=== PATIENT | female | born 1945 | race Caucasian/White ===

== ENCOUNTER → 2016-07-31 | Outpatient (CLI) | payer BC, MEDICARE ==
[~2016-07-31] MED LIST: ALDACTONE25 MG PO; AMBIEN5 MG PO; ARTHRITIS PAIN650 M1 PO; ASCORBIC ACID500 MG PO; ASPIRIN EC81 MG PO; B COMPLEX1 EACH PO; BACTRIM DS1 TAB PO; CALCIUM500 MG PO; CINNAMON500 MG PO; COMPAZINE10 MG PO; DULCOLAX10 MG R; ENULOSE UD L30 ML/EA PO; FISH OIL 1,0001 EACH PO; GARLIC1000 MG PO; GLUCOPHAGE500 MG PO; GLYXAMBI 10 MG1 EACH PO; GRANIX SUB-Q; HUMALOG100 UNIT/3 SUB-Q; K-PHOS NEUTRAL)1 TAB PO; LACTULOSE10 GM/15 M PO; LANTUS SOL100 UNIT/1 SUB-Q; LIPITOR20 M1 PO; LOPRESSOR50 MG PO; MAG-OX-400(241400 MG PO; MELATONIN3 MG PO; MILK OF MA400 MG/5 M PO; MIRALAX17 GM PO; MOBIC7.5 MG PO; OCUVITE SOFTGE1 EACH PO; PERCOCET 5-3251 EACH PO; PROTONIX40 MG PO; PYRIDIUM100 MG PO; TYLENOL ARTHRI650 MG PO; VITAMIN B-121000 MCG PO; VITAMIN D-40400 UNIT PO; VITAMIN D1000 UNIT PO
== END | disposition disaster alternative care site (69) ==
LOC: GOPD 07-27 → GRAD 06:50 → GOPD 07:00
DX: C80.1 Malignant (primary) neoplasm, unspecified (principal); R93.2 Abnormal findings on diagnostic imaging of liver and biliary tract
CPT/HCPCS: J2001; J7060; Q9967

== ENCOUNTER 2016-08-03 23:56 | Inpatient (IN) | payer MEDICARE, BC ==
[~2016-08-03] VITALS: Ht 154.9 cm; Wt 84.6 kg
--- NOTE | ~2016-08-03 | ECHO ---
Transthoracic Echocardiography Report (TTE) Demographics Patient Name MICHAEL LIVINGSTON Date of Study 08/16/2016 Patient Number [id number] Visit Number [id number] Date of 1945 Room Number G6221 Gender Female Number Age 70 year(s) Referring Beau Singleton MD Customer Relations Specialist Sammy Hayes Physician Stevie Delgadillo MD Physician Interpreting Ned Davis Pigment Mixer Physician Uma SÁNCHEZ Supervising Ordering Beau Singleton MD, MD/MLP Physician Nurse Stress Airline Ticket Agent Conclusions Contractility Score Summary Normal Left Ventricular contractility was noted. Summary The estimated left ventricular ejection fraction is 55-60%. Mild concentric left ventricular hypertrophy. Diastolic assessment reveals Grade I diastolic dysfunction. Epicardial fat pad noted. The aortic root and proximal ascending aorta are not well visualized. Suboptimal subcostal window to evaluate the IVC and interatrial septum. Procedure Type of Study TTE procedure:2D Echocardiogram, M-Mode, Doppler , Color Doppler. Procedure Date Date: 08/16/2016 Start: 07:09 AM Study Location: Inpatient Portable Technical Quality: Adequate visualization Indications:Pre-chemotherapy. Appropriate Use Criteria: 9 Patient Status: Routine HR: 90 bpm BP: 125/58 mmHg M-Mode/2D Measurements LV Diastolic Dimension: 3.39 cm LV Systolic Dimension: 2.38 cm LV Septum Diastolic: 1.12 cm LV PW Diastolic: 1.05 cm Cardiac Output: 5 l/min LA Dimension: 2.8 cm EF Estimated: 55 % LVOT: 1.9 cm LVOT VTI: 19.6 cm RV Base: 2.25 cm LV Stroke volume: 55.54 ml RV Length: 5.34 cm TAPSE: 1.77 cm TDI-S': 16 cm/s Doppler Measurements AV Peak Velocity: 1.18 m/s MV Peak E-Wave: 0.54 m/s AV Peak Gradient: 5.57 mmHg MV Peak A-Wave: 0.94 m/s AV Mean Gradient: 3 mmHg MV E/A Ratio: 0.57 LVOT Peak Velocity: 1.03 m/s MV P1/2t: 69 msec TR Gradient:3.95 mmHg PV Peak Velocity: 0.95 m/s Estimated RAP:9 mmHg PV Peak Gradient: 3.61 mmHg Estimated RVSP: 13 mmHg Estimated PASP: 12.95 mmHg E' Septal Velocity: 0.06 m/s A' Septal Velocity: 0.08 m/s E' Lateral Velocity: 0.09 m/s A' Lateral Velocity: 0.12 m/s Findings Left Ventricle The left ventricle is normal in size. Mild concentric left ventricular hypertrophy. Diastolic assessment reveals Grade I diastolic dysfunction. Right Ventricle Normal right ventricle structure and function. Left Atrium Normal left atrial size. Right Atrium Normal right atrial size. IVC measures 1.13 cm with inspiratory collapse. IVC imaging is consistent with normal RA pressures. Mitral Valve Trivial mitral regurgitation by color Doppler. Aortic Valve The aortic valve is mildly sclerotic. Tricuspid Valve Trivial tricuspid regurgitation by color Doppler. Pulmonic Valve The pulmonic valve is not well visualized. Pericardial Effusion Epicardial fat pad noted. Miscellaneous The aortic root and proximal ascending aorta are not well visualized. Suboptimal subcostal window to evaluate the IVC and interatrial septum. Pleural Effusion No evidence of pleural effusion. Contractility Score LV regional wall motion:(0-Non visualized 1-Normal 2-Hypokinesis 3-Akinesis 4-Dyskinesis 5-Aneurysm) Signature dtt: Vinnie Marino dtd: 08/16/16 0709 Physician Self Edit
--- NOTE | ~2016-08-03 | OR ---
PATIENT'S NAME: MICHAEL LIVINGSTON [facility] AGE: 70 Y [address] ROOM: [place] [address] LOCATION: [facility] ADMIT DATE: 08/04/2016 OR/Procedure Report DISCHARGE DATE: FAMILY PHYSICIAN: EVONNE SILVA MD ATTENDING PHYSICIAN: VINITA DOWNEY SURGEON: Calista Saavedra MD DYNAMICS AX SOLUTION ARCHITECT: DATE OF PROCEDURE: 08/13/2016 ANESTHESIOLOGIST: Issa Chavez MD. ANESTHESIA: General. COMPLICATIONS: None. ESTIMATED BLOOD LOSS: Minimal. PREOPERATIVE DIAGNOSIS: Communicating hydrocephalus. POSTOPERATIVE DIAGNOSIS: Communicating hydrocephalus. PROCEDURES: 1. Stealth Navigation System for placement of ventricular catheter. 2. Insertion of a right occipital ventriculoperitoneal shunt(valve used is Strata II valve, opening pressure set at 2). CLINICAL HISTORY: The patient is a 70-year-old female patient who was admitted under the hospitalist on August 04, 2016, for investigations and management of new onset jaundice, unsteady gait, cognitive decline, and urinary incontinence. The patient had repeat noncontrast CT head that was compared to previous imaging and that showed progressive ventriculomegaly. I saw the patient in consultation. High-volume tap was performed on August 08, 2016, and the patient did reasonably well with physiotherapy and occupational therapy after that. Her gait and strength significantly improved after the tap. 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 The final pathology is pending. I discussed the situation with the patient, the primary physician, and the patient's family. Given the significant improvement of her gait after the high-volume tap, I recommended the above-mentioned surgery to try to improve her daily functioning and prevent further falls. I discussed the procedure itself, benefits, and all the risks associated with it. I also discussed hospital stay and recovery. The patient was interested in proceeding with surgery, so she was brought in for the operation. DESCRIPTION OF PROCEDURE: The patient was seen in the preoperative care unit PATIENT'S NAME: MICHAEL LIVINGSTON [facility] AGE: 70 Y [address] ROOM: [place] [address] LOCATION: [facility] ADMIT DATE: 08/04/2016 OR/Procedure Report DISCHARGE DATE: FAMILY PHYSICIAN: EVONNE SILVA MD ATTENDING PHYSICIAN: VINITA DOWNEY and the correct side was marked. Then, she was transferred to the main operating theater, was given general anesthetic, and underwent endotracheal intubation without complications. Preoperative antibiotics were given. Calf compressors were used throughout the procedure. She was then positioned supine on the table and all her joints and bony prominences were securely padded. The patient's head was placed on a foam and turned to the left side to expose the right occipital and suboccipital regions. Then, the patient was registered to the Synapt[employer] Navigation System with good accuracy. I navigated the site of the bur hole and the hair overlying it was clipped off. Then, an incision was marked around the bur holes. I also marked the right para umbilical incision. Surgical sites were then prepped and draped as per usual. I started by exposing the abdomen. The incision was sharply opened down to the subcutaneous tissue. Then, using a monopolar cautery, the anterior rectus sheath was identified and incised. Rectus muscle was splayed and the posterior rectus sheath was identified. The posterior rectus sheath was incised to expose the intraperitoneal cavity and I was satisfied with that. Then, I proceeded to open the head. The incision was sharply opened down to the periosteum. Then, a subgaleal pouch was created. Then, the distal catheter was tunneled from the head to the abdomen without complications. The distal catheter was connected to the Strata II valve and that was tied off using 2-0 silk. Then, a high-speed Midas Jose Luis drill was brought in and one bur hole was fashioned down to the dura. The dura was coagulated and incised. The cortex was also coagulated and incised. Then, under guidance of the Synapticon Navigation System, ventricular catheter was inserted to a depth of 5 cm from the inner table and CSF escaped under moderate pressure. The catheter was then freely inserted to a depth of 10 cm and CSF continued to drip. That catheter was connected to the valve and tied off using 2-0 silk. The valve was positioned in the pouch without complications. The CSF continued to drip spontaneously from the distal catheter. Then, the distal catheter was inserted into the abdomen without any resistance. The opening into the posterior rectus sheath was sutured using 2-0 Vicryl. I was satisfied with the procedure. I proceeded to closure. The wounds were copiously irrigated with bacitracin-containing irrigation. The abdominal incision was closed in layers with 2-0 Vicryl to the anterior rectus sheath, 2-0 Vicryl to the subcutaneous tissue, and luis enrique to the skin. Sterile dressing was applied. The head incision was also closed in layers. Just to mention, the valve was anchored to the periosteum using 4-0 Nurolon. The skin was closed in layers. The galea was closed with 2-0 Vicryl, and skin was closed with 3-0 Prolene in a running fashion. Sterile dressing was applied. At the end of the operation, the instrument and sponge counts were correct. PATIENT'S NAME: MICHAEL LIVINGSTON [facility] AGE: 70 Y [address] ROOM: [place] [address] LOCATION: [facility] ADMIT DATE: 08/04/2016 OR/Procedure Report DISCHARGE DATE: FAMILY PHYSICIAN: EVONNE SILVA MD ATTENDING PHYSICIAN: VINITA DOWNEY The patient tolerated the operation without any complications. MD JASBIR ESCALANTE/modl /[id number] CC: MD Britney Puckett MD d: 08/14/16 0020 t: 08/14/16 1533, OPERATIVE SUMMARY
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
--- NOTE | ~2016-08-03 | CON ---
PATIENT'S NAME: MICHAEL LIVINGSTON [facility] AGE: 70 Y [address] ROOM: [place] [address] LOCATION: [facility] ADMIT DATE: 08/04/2016 Consultation DISCHARGE DATE: FAMILY PHYSICIAN: EVONNE SILVA MD ATTENDING PHYSICIAN: VINITA DOWNEY REFERRING PHYSICIAN: NAZIA ADAMES MD Consult for Dr. Avila. This pleasant 70-year-old lady is referred for rehab/Group evaluation. She is status post on 08/13 insertion of right occipital ventricular peritoneal shunt using Strata #2 valve with opening pressure set at 2, done on 08/13/2016, details on record for communicating, hydrocephalus with frequent falls as per history for few days' duration. First started to fall on last . MEDICAL HISTORY: 1. Jaundice with liver metastases and increased liver enzymes with diffuse hepatic metastases as per history. 2. 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 3. She is also hypertensive. 4. Diabetes. 5. Coronary artery disease. 6. Status post left knee surgery. 7. Total abdominal hysterectomy. 8. Status post right shoulder scope per history. At the present time, she is alert, not well oriented. Vitals are as follows. Blood pressure 136/62, temperature 99, pulse 86, respiration rate 12. She is 5 feet 1 inch tall and weighs 87.4 kg. She is giving history of smoking about 19 years ago when she has stopped and no alcohol abuse. She was jaundiced and followed closely by coin machine operator and chemical processing supervisor, scheduled for a possible liver biopsy. She can move all four. She can swallow without much difficulty. She is weak throughout at best with 3+ to 4-, unable to perform and cannot tolerate activity much and remains at risk of falling. She is continent of her bowel and bladder, she tells me. She is on the following medications. PATIENT'S NAME: MICHAEL LIVINGSTON [facility] AGE: 70 Y [address] ROOM: [place] [address] LOCATION: [facility] ADMIT DATE: 08/04/2016 Consultation DISCHARGE DATE: FAMILY PHYSICIAN: EVONNE SILVA MD ATTENDING PHYSICIAN: VINITA DOWNEY 1. Insulin detemir. 2. Insulin aspart. 3. Reglan. 4. Zofran. 5. Dilaudid. 6. Apresoline. 7. Labetalol. 8. Lasix. 9. Aldactone. 10. MiraLAX. 11. Percocet. 12. Insulin Humalog mild scale. 13. Melatonin. 14. B12 vitamin. 15. Vitamin D. 16. Os-Khurram D. 17. Lopressor. 18. Glucagon. 19. Glucose. 20. Dextrose. 21. NaCl 0.9%. 22. Ancef. 23. Demerol. 24. Toradol. 25. Fentanyl. 26. Vitamin C. 27. Cefazolin. At the present time, I will continue her on PT, OT, already initiated. I will add speech therapy to her therapy schedule and I feel that this lady will benefit from intensive rehabilitation of about 2 weeks or so, aiming to discharge home with modified independence. Did discuss all the plan of care with her in detail. She verbalized understanding and agreement. Thank you for this referral. ANGELA HERBERT MD [facility]/modl /[id number] d: 08/14/16 1426 t: 08/15/16 1541, CONSULTATION REPORT
--- NOTE | ~2016-08-03 | DS ---
PATIENT'S NAME: MICHAEL LIVINGSTON [facility] AGE: 70 Y [address] ROOM: [place] [address] LOCATION: [facility] ADMIT DATE: 08/04/2016 Discharge Summary DISCHARGE DATE: 09/05/2016 FAMILY PHYSICIAN: Elie Peña MD ATTENDING PHYSICIAN: Edvin Hubbard 1. Diffuse large B-cell lymphoma. 2. Normal pressure hydrocephalus status post CORPORATE MEETING PLANNER shunt. 3. Elevated liver function test. 4. Diabetes mellitus type 2 with hyperglycemia. 5. Essential hypertension. 6. Obesity with a BMI of 34.2. HOSPITAL COURSE: Please reference the admitting data to the history and physical as dictated by Dr. Edvin Hubbard. Briefly, this 70-year-old female, who was suffering from frequent falls, jaundice, and elevated liver functions, was asked to be admitted for further evaluation and management. She was admitted under the hospitalist care and taken for CT of the head noncontrast, which showed chronic ventriculomegalia, which showed mildly worsened change. MRI further confirmed this. She also had an MRI of her lumbar spine at that time because of the frequent falls and lower extremity leg weakness, which just showed lumbar degenerative changes without any significant canal stenosis. It was also noted on exam that she had diffuse nodular disease throughout her liver, which was already known prior to hospitalization. Neurosurgery consultation was obtained for the ventriculomegalia. She was given occupational and physical therapy for optimization and a high-volume lumbar puncture tap was scheduled and done on August 08. This was done under IR and 48 mL of CSF was removed. A followup CT stealth protocol for operative planning was obtained on August 09 showing stable ventriculomegalia. She was given risks, benefits, and alternatives of a ventricular peritoneal shunt placement. She was given preoperative Ancef [employer] and taken to surgery on August 13, 2016, performed by Dr. Saavedra. Postoperatively, she was put on intensive restorative plan. We did ask physiatry to see the patient, but at the present time, he did not feel she was quite ready to do and be transitioned into intensive therapy. Because of cofounding factors of newly diagnosed lymphoma and requirements of chemo, she was not a skilled candidate. She was held and continued on therapies within the acute setting and make progress while treating her cancer and was felt to continue improvement independently from a functional status standpoint until day of discharge. As mentioned above, the patient did have elevated liver function and jaundice. Her initial counts upon arrival showed an AST of 452, an ALT of 557, an alkaline phosphatase of 960, and total bilirubin of 9.3. This did increase to PATIENT'S NAME: MICHAEL LIVINGSTON [facility] AGE: 70 Y [address] ROOM: [place] [address] LOCATION: [facility] ADMIT DATE: 08/04/2016 Discharge Summary DISCHARGE DATE: 09/05/2016 FAMILY PHYSICIAN: Elie Peña MD ATTENDING PHYSICIAN: Edvin Hubbard a total bilirubin of 21 over the next few days. A GI consultation was obtained. She had already begun a workup as an outpatient for this and had plan for a biopsy. A biopsy was performed on 08/06/2016, which underwent without any complication. This was sent to lab and pathology showing that the liver tissue biopsy was diffuse large B-cell lymphoma with a germinal center B- cell phenotype. Oncology then was asked for consultation in which once the results were confirmed, she was given treatment options. In the meantime, she was placed on lactulose and rifaximin given her condition. Her LDH and labs were followed serially. Treatment plan was within curative intent. A PICC line was placed for necessity of chemotherapy administration. A bone marrow biopsy was also obtained. 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 She tolerated chemotherapy well. Decadron associated hyperglycemia was tough to maintain, so levels were titrated accordingly. Her liver functions showed improvement with her bilirubin decreasing for more than half of what it was. It was agreed upon that she was a candidate for R-CHOP therapy in which she underwent on 08/30/2016. She tolerated this well. Of note, she was on routine antiemetics, pain control, Decadron with taper, and prophylactic antibiotics during her treatment regimen. By the day of discharge, her liver functions had improved to an AST of 36, an ALT of 86, and a total bilirubin of 1.9. Her further chronic conditions were managed and maintained with home medicines and titration. Her electrolytes required optimization throughout her stay. Physical, occupational, and speech therapy worked with her gait functionality, her daily activity, and cognitive quaker. DVT prophylaxis maintained with pneumatic compression devices and Lovenox when able during her stay. She made progress over the last month and expects a good prognosis. CONDITION UPON DISCHARGE: Good. PERTINENT LABORATORY DATA AND RADIOLOGIC IMAGING: As above. CONSULTING PROVIDERS: 1. Dr. Saavedra of Neurosurgery. 2. Dr. Renteria of Gastroenterology. 3. Dr. Ruiz of physiatry. 4. Dr. Maldonado Yanez of Oncology. PROCEDURES: 1. CORPORATE MEETING PLANNER shunt placement by Dr. Saavedra on 08/14/2016. 2. Bone marrow biopsy by Dr. Reji Shen. LABORATORY RESULTS: Most recently on 08/31; her CBC showed a white blood cell normalized at 7.8 down from over 60,000, hemoglobin of 9.1, hematocrit of PATIENT'S NAME: MICHAEL LIVINGSTON [facility] AGE: 70 Y [address] ROOM: [place] [address] LOCATION: [facility] ADMIT DATE: 08/04/2016 Discharge Summary DISCHARGE DATE: 09/05/2016 FAMILY PHYSICIAN: Elie Peña MD ATTENDING PHYSICIAN: Edvin Hubbard 27.7, and a platelet count of 312. Her most recent chemistry panel showed a glucose of 153, a BUN of 22, creatinine 0.6, sodium 138, potassium 4.1, chloride of 106, CO2 of 25, calcium of 7.7. Liver functions as mentioned most recently normalizing AST of 36, ALT of 86, alkaline phosphatase of 295, total bilirubin of 1.9, and a direct bilirubin of 1.7, phosphorus of 2.7, LDH of 188, and a GFR of greater than 60. Her initial lipid panel showed a total cholesterol of 435, triglyceride of 195, HDL less than 10, and LDL 386. PATH REPORTS: 1. Bone marrow biopsy showed suspicious for low-frequency B-cell lymphoproliferative disorder. 2. Cerebral spinal fluid was negative for malignant cells. 3. Liver tissue with diffuse large B-cell lymphoma with germinal center B- cell phenotype. RADIOLOGIC IMAGING: Most recent noncontrast head CT for followup shunt placement showed no evidence of complication and stable ventriculomegalia on 08/15. DISCHARGE MEDICINES: 1. Vitamin B12 1000 mcg p.o. every day. 2. NovoLog FlexPen sliding scale with each meal three times daily; for blood sugar of 150-200, takes 0 units; for blood sugar of 201-250, takes 2 units; for blood sugar of 251-300, takes 4 units. 3. Levemir FlexPen 30 units subcutaneous every night at bedtime. 4. Enulose 15 mL p.o. twice daily to hold if having greater than three bowel movements per day. 5. Lopressor 50 mg p.o. every 12 hours. 6. [place]-3 fatty acid 1000 mg p.o. twice daily. 7. MiraLax 17 g p.o. twice daily as needed for constipation. 8. Potassium phosphate neutral one tablet p.o. twice daily. 9. Os-Khurram plus D 500 mg p.o. every day. 10. Compazine 10 mg p.o. every 6 hours as needed. 11. Aldactone 12.5 mg p.o. every day. 12. Bactrim DS one tablet p.o. every Saturday and at 0900 and 2100. 13. Granix 480 mcg subcutaneous every day, stop date 09/08 at 2359. She will need to get this at Dr. Pena's office or at [facility]. 14. Percocet 5/325 mg 1-2 tablets p.o. every 4 hours needed. 15. Aspirin 81 mg p.o. every day. 16. Glucophage 500 mg p.o. twice daily. 17. Vitamin C, vitamin E, and lutein one capsule p.o. every day. 18. Melatonin 3-6 mg p.o. every night at bedtime as needed. 19. Pyridium 100 mg p.o. every day. 20. Ascorbic acid 500 mg p.o. every day. PATIENT'S NAME: MICHAEL LIVINGSTON [facility] AGE: 70 Y [address] ROOM: [place] [address] LOCATION: [facility] ADMIT DATE: 08/04/2016 Discharge Summary DISCHARGE DATE: 09/05/2016 FAMILY PHYSICIAN: Elie Peña MD ATTENDING PHYSICIAN: Edvin Hubbard 21. Prescriptions were written for blood glucose monitoring strips for True Metrix four times daily to record in her log book. 22. BD pen needles for four times a day injections at 3/16-inch 32-gauge needles. DISCHARGE INSTRUCTIONS: The patient will be discharged to home with home health care to include senior living, physical therapy, occupational therapy, and speech therapy for cognitive rehabilitation. A [id number] form was completed and discussed with the patient. Her diet should be without restriction. Her activity should be of fall precautions. She will need followups with each specialist as follows. PCP; Dr. Pena, September 12 at 1:30 with Rebeka De Paz. She should take her blood sugar regimen and have a CBC and a CMS at the followup. Dr. Valle on September 20 at 0900 with plans to continue chemotherapy treatments. As ordered above, her Granix treatments should continue as well as Bactrim. She will require to have her Granix done in her local PCP office or hospital. This was discussed in length with the patient. Dr. Saavedra for followup with CORPORATE MEETING PLANNER shunt in the next 2-4 weeks. An appointment has been made SaturdaySeptember 25 at 10 a.m. The patient will also go home with PICC line. Eventually, she will require a permanent line placement that should be discussed at greater length as an outpatient. The patient's dressing was changed on the day of discharge and she was given PICC line care and education. Home health care should continue to observe the patient and help her care for her PICC line when she is at home. The above line of information was discussed with the patient. The patient stated complete understanding and all questions were answered satisfactorily. Total time arranging discharge with collaboration with specialists and providers as well as arranging home health care was greater than 30 minutes. KAT THOMPSON APRN, APRN FOR MD EMERALD NUNN/teresa PATIENT'S NAME: MICHAEL LIVINGSTON [facility] AGE: 70 Y [address] ROOM: [address] [address] LOCATION: [facility] ADMIT DATE: 08/04/2016 Discharge Summary DISCHARGE DATE: 09/05/2016 FAMILY PHYSICIAN: Elie Peña MD ATTENDING PHYSICIAN: Edvin Hubbard /[id number] CC: MD Katrina Lenz MD Ahmad Bader, MD d: t: 09/06/16 0945, DISCHARGE SUMMARY
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
--- NOTE | ~2016-08-03 | HP ---
PATIENT'S NAME: MICHAEL LIVINGSTON [facility] AGE: 70 Y [address] ROOM: [id number] [place], [place] [address] LOCATION: [facility]PCU ADMIT DATE: 08/04/2016 History & Physical DISCHARGE DATE: FAMILY PHYSICIAN: Maribel Pena MD ATTENDING PHYSICIAN: VINITA DOWNEY DATE OF SERVICE: CHIEF COMPLAINT: Frequent falls. HISTORY OF PRESENT ILLNESS: This is a 70-year-old female who has been recently been diagnosed with some liver mets last week and is transferred from [place] because of increased frequent falls in the last 2 days. History as obtained from the patient, she reports that last couple of days, she noticed that she has been falling more frequently, she observed that when she walks suddenly, her legs will give way under her, this happened first on , and then happened again yesterday, and by evening times, the son decided to take the patient into the ER for evaluation. On arrival in the ER, they did some blood work and observed the patient was jaundiced and her blood work showed she had some elevated liver enzymes, which was first diagnosed last week Saturday, when the patient came in for checkup with her PCP Dr. Peña who did some blood work and found that the patient had some elevated enzymes and subsequently had an ultrasound done followed by a CAT scan of the chest and abdomen, here at [facility], the ultrasound is reported as diffuse hepatic metastatic disease, probably benign hypoechoic structure in the spleen either reflecting the hemangioma or possible cyst, and this was followed by CT of the chest and abdomen, which is reported as liver capsular irregularity raises the possibility of cirrhosis, the diffuse small liver lesion seen on ultrasound are less clearly defined on the CT study today; although, there is mild diffuse parenchymal immunogenicity. So, following this, Dr. Peña had scheduled the patient for a liver biopsy as outpatient scheduled for August 06, 2016 at 2:30 here at [facility]. However, the PA at [place] still felt the patient needed to be transferred over. The patient reports that she has actually been falling for the past year on and off and usually she walks with a cane and it has progressed from walking with a cane to walking with a walker. She reports that last week Saturday when she came in to visit her PCP that she fell in the parking lot. She denies any dizziness or lightheadedness prior to the fall. She denies any headache. She just observes that she just finds that her legs just gives way and she falls to the ground. Denies chest pain, denies abdominal pain, however, she also notes urine incontinence, denies fecal incontinence, so she usually wear pads. Denies fever. Denies urinary symptoms. PATIENT'S NAME: MICHAEL LIVINGSTON [facility] AGE: 70 Y [address] ROOM: [id number] [place] [id number] LOCATION: GPCU ADMIT DATE: 08/04/2016 History & Physical DISCHARGE DATE: FAMILY PHYSICIAN: Maribel Pena MD ATTENDING PHYSICIAN: VINITA DOWNEY REVIEW OF SYSTEMS: The 13-elements of review of systems were asked and as documented in the HPI. She also denies back pain. PAST MEDICAL HISTORY: Includes diabetes, recently diagnosed with probably cirrhosis versus metastatic disease, vitamin D deficiency, vitamin B12 deficiency, also coronary artery disease, she says she has got some blockage in her heart. PAST SURGICAL HISTORY: Includes left knee surgery, total abdominal hysterectomy, and right shoulder cleaning out. SOCIAL HISTORY: Lives on her own. Stopped smoking 19 years ago. Smoked for about 6-7 years 1 pack per day. Denies use of alcohol. FAMILY HISTORY: Both parents have . Mother at the age of 76 from breast cancer. Father passed also away in his 70s and was a chronic alcoholic. PHYSICAL EXAMINATION: VITAL SIGNS: Temperature 98.2, pulse 90, respiratory rate 16, blood pressure 136/77, and oxygen saturation 94%. GENERAL: Reveals a pleasant female who is alert, awake, and oriented x3, not in any form of respiratory distress or painful distress. NEUROLOGIC: Cranial nerves 2 through 12 are intact bilaterally. Sensory is reduced on the right lower extremity. Power in both upper extremities is at least 4 and in both lower extremity is at least a 3. HEENT: Normocephalic, atraumatic. Pupils equal and reactive to light bilaterally. Pharynx is normal. Mucosa is moist. NECK: Supple. No area of tenderness. No lymphadenopathy. EARS: No obvious ear discharge or drainage. CARDIOVASCULAR: Normal S1, S2. Regular rate and rhythm. CHEST: Clear to auscultation bilaterally. ABDOMEN: Soft, nondistended. No area of tenderness. No palpable organomegaly. Positive bowel sounds. EXTREMITIES: There is no joint swelling, erythema, or tenderness. SKIN: Skin in the upper body appears icteric. LABORATORY DATA: Labs done at the outside facility: Sodium 133, potassium 4.2, chloride 97, CO2 26, anion gap 9.1, BUN 15, creatinine 1.0, total bili 10.6, alk phos 964, AST 457, ALT 599, total protein 6.2, albumin 2.3, amylase 30, and lipase 123. PATIENT'S NAME: MICHAEL LIVINGSTON [facility] AGE: 70 Y [address] ROOM: [place] [address] LOCATION: GPCU ADMIT DATE: 08/04/2016 History & Physical DISCHARGE DATE: FAMILY PHYSICIAN: Maribel Pena MD ATTENDING PHYSICIAN: VINITA DOWNEY WBC 9.1, H and H 13.3/40.7, and platelet is 265. INR 1.2. ASSESSMENT AND PLAN: This is a 70-year-old female with history of frequent falls. 1. Frequent falls. Differentials include it could be probably normal- pressure hydrocephalus. Given a history of incontinence of urine and frequent falls, we will get a CT head without contrast. I will also get a MRI of her lumbosacral with intravenous contrast. Other differential could be peripheral neuropathy from her diabetes, which appears to be probable to be uncontrolled. 2. Elevated transaminases, possibly from liver cirrhosis plus from autoimmune hepatitis. We will likely get a GI consult for further management. The patient has been scheduled to get a liver biopsy on Saturday. 3. Diabetes type 2 with hyperglycemia. We will continue the patient on her insulin. 4. Please note, all the above conditions are present on admission. The line of management was explained to the patient and her son who did not have any questions at this time. MD LINA NUNN/teresa /[id number] D: [id number] T: [id number] HISTORY & PHYSICAL
[~2016-08-03 23:56] MED LIST changes: -ALDACTONE25 MG PO; -AMBIEN5 MG PO; -ARTHRITIS PAIN650 M1 PO; -ASCORBIC ACID500 MG PO; -BACTRIM DS1 TAB PO; -COMPAZINE10 MG PO; -DULCOLAX10 MG R; -ENULOSE UD L30 ML/EA PO; -GRANIX SUB-Q; -K-PHOS NEUTRAL)1 TAB PO; -LACTULOSE10 GM/15 M PO; -MAG-OX-400(241400 MG PO; -MILK OF MA400 MG/5 M PO; -MIRALAX17 GM PO; -PERCOCET 5-3251 EACH PO; -PROTONIX40 MG PO; -PYRIDIUM100 MG PO; -VITAMIN B-121000 MCG PO; -VITAMIN D-40400 UNIT PO
[2016-08-04] MEDS ORDERED: VITAMIN B-121000 MCG PO (03:30)
[2016-08-04] MEDS ORDERED: PYRIDIUM100 MG PO (03:31)
[2016-08-04 04:36] LABS: BLOOD URINE 10 /UL (NEGATIVE); COLOR URINE AMBER (YELLOW); GLUCOSE URINE NEGATIVE (NEGATIVE); KETONE URINE NEGATIVE (NEGATIVE); LEUKOCYTES URINE 500 /UL (NEGATIVE); NITRITE URINE POSITIVE (NEGATIVE); PROTEIN URINE 30 mg/dL (NEGATIVE); TURBIDITY URINE 2+ (CLEAR); UROBILINOGEN URINE 12 mg/dL (NORMAL)
[2016-08-04 05:03] LABS: WBC URINE 20-50 #/HPF (NEGATIVE)
[2016-08-04 05:04] LABS: BACTERIA URINE MANY (NEGATIVE); CRYSTALS URINE CALCIUM OXALATE (NEGATIVE); RBC URINE 0-2 #/HPF (NEGATIVE)
[2016-08-04 05:10] LABS: BASOPHIL # 0.1 K/uL (0.0-0.2); BASOPHIL % 0.6 %; EOSINOPHIL # 0.3 K/uL (0.0-0.5); EOSINOPHIL % 3.6 %; HEMATOCRIT 40.6 % (33.0-46.0); HEMOGLOBIN 12.9 g/dL (10.0-15.0); IMMATURE GRANULOCYTE # 0.1 K/uL (0.0-0.3); IMMATURE GRANULOCYTE % 0.6 %; LYMPHOCYTE # 1.7 K/uL (0.8-4.0); LYMPHOCYTE % 19.8 %; MCHC 31.8 gm/dL (32.0-36.5); MCV 85.1 fl (83.0-98.0); MONOCYTE # 1.2 K/uL (0.0-1.0); MONOCYTE % 13.8 %; MPV 11.4 fl (9.4-12.4); NEUTROPHIL # (ANC) 5.4 K/uL (1.8-7.8); NEUTROPHIL % 61.6 %; NRBC % 0 /100WBC (0-0.00); PLATELET COUNT 264 K/uL (150-450); RBC 4.77 M/uL (3.50-5.50); RDW-CV 16.3 % (11.9-14.6); WBC 8.7 K/uL (4.0-11.0)
[2016-08-04 05:13] LABS: ALBUMIN 2.4 gm/dL (3.5-5.0); BLOOD UREA NITROGEN 15 mg/dL (6-24); CALCIUM 8.7 mg/dL (8.5-10.5); CHLORIDE 100 mMol/L (96-110); CO2 26 mMol/L (22-32); CREATININE 0.9 mg/dL (0.5-1.1); ESTIMATED GFR (MDRD EQUATION) > 60; SODIUM 135 mMol/L (135-145); TOTAL PROTEIN 6.2 g/dL (6.0-8.4)
[2016-08-04 05:17] LABS: ALK PHOS 960 IU/L (33-138)
[2016-08-04 05:18] LABS: ALT 557 IU/L (12-78); AST 452 IU/L (10-40); TOTAL BILIRUBIN 9.3 mg/dL (0.0-1.5)
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
[2016-08-04] MEDS ORDERED: ASCORBIC ACID500 MG PO (10:57)
--- NOTE | 2016-08-04 15:43 | NUR ---
Significant Event: A/O X3. UP WITH 1 ASSIST, GB AND WALKER. SLIGHTLY UNSTEADY. ORTHOSTATIC BPs DONE. IV TO LEFT AC WITH NS @ 75 ML/HR. DR. ADAMES CONSULTED, WILL DO LIVER BIOPSY Saturday, WILL BE NPO AFTER MIDNIGHT SATURDAY NIGHT. WILL HAVE MRI OF BRAIN TODAY. DENIES PAIN. CONTINUES TO BE VERY JAUNDICED. Follow up:
[2016-08-04 15:44] LABS: INR - (THERAPEUTIC) 1.1 (0.9-1.1); PROTIME 11.7 SECONDS (9.6-11.1)
[2016-08-04 15:58] LABS: ESTIMATED GFR (MDRD EQUATION) 55
[2016-08-05 04:10] LABS: BASOPHIL # 0.1 K/uL (0.0-0.2); BASOPHIL % 0.6 %; EOSINOPHIL # 0.4 K/uL (0.0-0.5); EOSINOPHIL % 4.8 %; HEMATOCRIT 39.1 % (33.0-46.0); HEMOGLOBIN 12.3 g/dL (10.0-15.0); IMMATURE GRANULOCYTE % 0.4 %; LYMPHOCYTE # 1.3 K/uL (0.8-4.0); LYMPHOCYTE % 15.9 %; MCHC 31.5 gm/dL (32.0-36.5); MCV 85.7 fl (83.0-98.0); MONOCYTE # 1.3 K/uL (0.0-1.0); MONOCYTE % 15.1 %; MPV 11.2 fl (9.4-12.4); NEUTROPHIL # (ANC) 5.2 K/uL (1.8-7.8); NEUTROPHIL % 63.2 %; NRBC % 0 /100WBC (0-0.00); PLATELET COUNT 258 K/uL (150-450); RBC 4.56 M/uL (3.50-5.50); RDW-CV 16.4 % (11.9-14.6); WBC 8.3 K/uL (4.0-11.0)
--- NOTE | 2016-08-05 04:12 | NUR ---
Significant Event: PATIENT IS A/O X3 BUT FORGETFUL AT TIMES. VSS. HR 70'S. SBP 150-160'S. AFEBRILE. 02 SATS IN MID 90'S ON RA. C/O LEFT KNEE PAIN. ICE APPLIED WITH SOME RELIEF. LUNGS CLEAR/DIM THROUGHOUT. UP WITH 1 ASSIST WITH WALKER/GB TO RESTROOM. CAN BE VERY UNSTEADY AT TIMES ESPECIALLY WITH TURNING. BOWELS ACTIVE. BM X1. VOIDS PER RESTROOM BUT INCONTINENT AT TIMES. CONTINUES TO HAVE JAUDICE SKIN THROUGHOUT INCLUDING EYES AND MOUTH. IV TO LEFT AC WITH NS AT 75ML/HR. DR NOEL SEEN PATIENT AND BELIEVES SHE HAS NORMAL PRESSURE HYDROCEPHALUS. SINCE PATIENT HAD ASPIRIN RECENTLY THE SPINAL TAP WAS SCHEDULE TO BE DONE ON THE . PHYSICIAN NEEDS TO CLARIFY WHO IS DOING IT. ON ACHS ACCUCHECKS. Follow up: CONTINUE TO MONITOR PER PLAN OF CARE.
[2016-08-05 04:30] LABS: ALBUMIN 2.1 gm/dL (3.5-5.0); BLOOD UREA NITROGEN 15 mg/dL (6-24); CALCIUM 8.6 mg/dL (8.5-10.5); CHLORIDE 100 mMol/L (96-110); CO2 24 mMol/L (22-32); CREATININE 0.8 mg/dL (0.5-1.1); ESTIMATED GFR (MDRD EQUATION) > 60; SODIUM 136 mMol/L (135-145); TOTAL PROTEIN 5.7 g/dL (6.0-8.4)
[2016-08-05 04:31] LABS: ALK PHOS 951 IU/L (33-138); ALT 557 IU/L (12-78); ANION GAP 15.9 (10.0-19.0); AST 533 IU/L (10-40); POTASSIUM 3.9 mMol/L (3.7-5.1); TOTAL BILIRUBIN 11.3 mg/dL (0.0-1.5)
--- NOTE | 2016-08-05 16:14 | NUR ---
Significant Event: A/O X3. FORGETFUL AT TIMES. UP WITH 1 ASSIST, GB AND WALKER, SLIGHTLY UNSTEADY, ESPECIALLY WITH TURNING. AMBULATED IN HALLS WITH PT. DENIES PAIN. LEFT FA IV SL'D, DRESSING CHANGED. BLOOD SUGAR 66 THIS AM, NO S/S NEEDED TODAY. ONLY 20 UNITS OF LEVEMIR ORDERED FOR TONIGHT. WILL BE NPO AT MIDNIGHT FOR LIVER BIOPSY IN AM. JAUNDICED SKIN AND EYES CONTINUES. FAMILY @ BEDSIDE T/O THE SHIFT. Follow up: LIVER BX IN AM. PLAN FOR SPINAL TAP IN NEXT 4-5 DAYS.
[2016-08-06 03:53] LABS: BASOPHIL # 0.1 K/uL (0.0-0.2); BASOPHIL % 0.7 %; EOSINOPHIL # 0.3 K/uL (0.0-0.5); EOSINOPHIL % 3.7 %; HEMATOCRIT 39.4 % (33.0-46.0); HEMOGLOBIN 12.5 g/dL (10.0-15.0); IMMATURE GRANULOCYTE # 0.1 K/uL (0.0-0.3); IMMATURE GRANULOCYTE % 0.6 %; LYMPHOCYTE # 1.5 K/uL (0.8-4.0); LYMPHOCYTE % 17.1 %; MCH 26.9 pg (27.0-34.0); MCHC 31.7 gm/dL (32.0-36.5); MCV 84.9 fl (83.0-98.0); MONOCYTE # 1.2 K/uL (0.0-1.0); MONOCYTE % 14.2 %; NEUTROPHIL # (ANC) 5.4 K/uL (1.8-7.8); NEUTROPHIL % 63.7 %; NRBC % 0 /100WBC (0-0.00); PLATELET COUNT 277 K/uL (150-450); RBC 4.64 M/uL (3.50-5.50); RDW-CV 16.4 % (11.9-14.6); WBC 8.5 K/uL (4.0-11.0)
[2016-08-06 04:13] LABS: INR - (THERAPEUTIC) 1.1 (0.9-1.1); PROTIME 11.8 SECONDS (9.6-11.1)
[2016-08-06 04:23] LABS: ALBUMIN 2.1 gm/dL (3.5-5.0); BLOOD UREA NITROGEN 19 mg/dL (6-24); CALCIUM 8.7 mg/dL (8.5-10.5); CHLORIDE 98 mMol/L (96-110); CO2 23 mMol/L (22-32); CREATININE 0.8 mg/dL (0.5-1.1); ESTIMATED GFR (MDRD EQUATION) > 60; SODIUM 133 mMol/L (135-145); TOTAL BILIRUBIN 13.3 mg/dL (0.0-1.5); TOTAL PROTEIN 5.9 g/dL (6.0-8.4)
[2016-08-06 04:27] LABS: ALT 533 IU/L (12-78); ANION GAP 15.7 (10.0-19.0); AST 531 IU/L (10-40); POTASSIUM 3.7 mMol/L (3.7-5.1)
[2016-08-06 04:46] LABS: ALK PHOS 1027 IU/L (33-138)
--- NOTE | 2016-08-06 04:47 | NUR ---
Significant Event: PATIENT IS A/O X3 BUT FORGETUL. VSS. HR 60-70'S. SBP 140-170'S. AFEBRILE. 02 SATS IN MID 90'S ON RA. NO C/O PAIN. LUNGS CLEAR/DIM TRHOUGHOUT. UP WITH 1A WITH WALKER/GB. UNSTEADY GAIT ESPECIALLY WITH TURNS. BOWELS ACTIVE. BM X2. VOIDS PER RESTROOM. INCONTINENT VOIDS AT TIMES. BREIF ON. CONTINUES TO HAVE JAUDICE EVEN TO EYES AND MOUTH. IV TO LEFT AC SL. ON ACHS ACCUCHECKS. NPO SINCE MIDNIGHT. Follow up: LIVER BIOPSY IN AM. CONTINUE TO MONITOR PER PLAN OF CARE.
[2016-08-07 04:55] LABS: TOTAL BILIRUBIN 14.3 mg/dL (0.0-1.5); TOTAL PROTEIN 5.6 g/dL (6.0-8.4)
--- NOTE | 2016-08-07 05:16 | NUR ---
Significant Event: PATIENT HAS BEEN A/0 X 3, SLOW TO RESPOND AT TIMES. SBP'S REMAINED IN THE 160'S, HR IN THE 80-90'S. 02 UPPER 90'S ON RA. SHE HAS RESTED WELL THIS EVENING WITH NO COMPLAINTS. AMBULTES 1 ASSIST WITH GAIT BELT WALKER. LIZETTE CALLED TO SHASHI MACK ORDERS, 30 UNITS GIVEN AT HS. SKIN REMAINS JAUNDICED. DID NOT NOTICE ANY DIZZYNESS THIS EVENING, DENIED ALL PAIN, NO PAIN MEDS GIVEN. Follow up:
--- NOTE | 2016-08-07 14:36 | NUR ---
Introduced myself and role of care management to pt's son while she was sleeping. He lives in [place] and so does she. He states she is in senior housing and is fairly independent. Just recenlty her gait has changed and falls. He does check on her quite a bit and is hoping with the spinal tap and everything being done she will be able to go home. I did mention hhc if needed and he will just have to see. WIll continue to follow.
--- NOTE | 2016-08-07 15:53 | NUR ---
Significant Event: Patient A&O x3. Can be forgetful at times. Slow to respond to questions at times. Patient continues to be very jaundiced. Morning BS 74. 1 unit of novolog given after breakfast for carb count. Afternoon BS at 129. 1 unit given for carb count. Night time levemir dose reduced to 26 units. Patient complains of pain at liver biopsy site. Percocet given x1 at 1515. Bandage of site change to bandaid. Patient was incontinent of urine x2 large voids. BM today. Spinal tap tomorrow. Patient has been calm and cooperative with cares. Follow up: Continue plan of care.
[2016-08-07 16:14] LABS: ALPHA-1-ANTITRYPSIN 280 mg/dL (100-200); CERULOPLASMIN 44 mg/dL (7-220)
--- NOTE | 2016-08-08 07:20 | NUR ---
Significant Event: A/0 X 3, VSS ON RA. PATIENT IS TO HAVE A LUMBAR PUNCTURE TODAY WITH DR. NOEL. PT TO ASSESS GAIT BEFORE AND AFTER. Follow up:
--- NOTE | 2016-08-08 14:28 | NUR ---
Significant Event: A&O x3 but can be forgetful at times. VERY HIGH FALL RISK. MULTIPLE PREVIOUS FALLS. Slow to respond to questions at times. Skin and eyes continue to be jaundiced. Low BS this am of 62 treated effectively with 240ml of orange juice. Patient C/O pain in the right upper quadrant of abdomen at the liver biopsy site. Mostly manageable but did give percocet x1. Also complains of R)shoulder pain. Continues to be incontinent of urine. BM x1. Patient down for a lumbar puncture this am at 0915 and returned to the floor at 1030. 48ml of fluid taken off. Patient tolerated procedure as expected. Family has been in room all day. Patient remains calm and cooperative with cares. ACHS accu checks. Follow up: Continue plan of care. Monitor weakness.
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
--- NOTE | 2016-08-09 12:32 | NUR ---
A - PT SCREENED D/T LOS. FORGETFUL @ TIMES. SLOW TO RESPOND @ TIMES. S/P LIVER BX. LIVER METS? S/P LUMBAR PUNCTURE. FREQUENT FALLS NEIGHBORHOOD COORDINATOR. ABD PAIN. HT: 61" WT: 184# BMI: 34.7 LABS: ACCUCHECK 62-REAS, NA 133, ALB 2.0, TOT BILI 14.3, ALK PHOS 1036, AST 536, ALT 537 MEDS: LEVEMIR, CARB COUNT INSULIN, SSI DIET: REG. INTAKE: 25-100% NEEDS: 9311-2467 KCAL (15-20 KCAL/KG), 84-101 G PRO (1-1.2 G/KG), 2100 ML FLUID (25 ML/KG) D - INADEQUATE NUTRIENT INTAKE AT TIMES R/T DECREASED APPETITE, ALTERED GI FUNCTION AEB INTAKE RECORD, ABD PAIN. I - GOAL FOR INTAKE 50-75% FOR DURATION OF STAY. WILL ADD ENSURE @ B M/E - WILL MONITOR INTAKE. F/U IN 4-5 DAYS.
--- NOTE | 2016-08-09 12:35 | NUR ---
Talked with patient and son at bedside. Denies questions or concerns for care management today, still hopeful to go home on discharge, said will need therapy, discussed potentially doing outpt therapy vs having home health and doing therapy in her home 1-2x week. They would be open to that. I did put HH face to face sheet on chart. Will follow.
--- NOTE | 2016-08-09 17:27 | NUR ---
Significant Event: Patient A/O x 3 but forgetful. Up with 1-2 A. Weak and tired frequently. VSS throughout the day on RA. Started having nausea early this afternoon. Gave IV zofran x 1. Have not given anything for pain this shift. L)AC PIV SL. Follow up: Continue as per plan of care. Continue to monitor weakness. Patient to discuss possible shunt placement with Dr. Saavedra today.
--- NOTE | 2016-08-10 05:00 | NUR ---
Significant Event: VSS ON RA, AFEBRILE. SBP 130-160'S, HR 80'S. BIGGEST ISSUE THIS EVENING WAS THE PATIENTS PROGRESSIVE WEAKNESS. SHE IS NO LONGER ABLE TO GET OUT OF BED, EVEN WITH 2-[address]-OF HEAD WAS PERFORMED TONIGHT, RESULTS NOT IN YET. HAS RESTED WELL, NO COMPLAINTS OF PAIN. Follow up:
[2016-08-10 06:37] LABS: BASOPHIL # 0.1 K/uL (0.0-0.2); BASOPHIL % 0.6 %; EOSINOPHIL # 0.2 K/uL (0.0-0.5); EOSINOPHIL % 1.5 %; HEMATOCRIT 38.5 % (33.0-46.0); HEMOGLOBIN 12.5 g/dL (10.0-15.0); IMMATURE GRANULOCYTE # 0.1 K/uL (0.0-0.3); IMMATURE GRANULOCYTE % 0.5 %; LYMPHOCYTE # 1.9 K/uL (0.8-4.0); LYMPHOCYTE % 16.1 %; MCH 27.2 pg (27.0-34.0); MCHC 32.5 gm/dL (32.0-36.5); MCV 83.7 fl (83.0-98.0); MONOCYTE % 16.7 %; MPV 10.8 fl (9.4-12.4); NEUTROPHIL # (ANC) 7.6 K/uL (1.8-7.8); NEUTROPHIL % 64.6 %; NRBC % 0 /100WBC (0-0.00); RDW-CV 16.5 % (11.9-14.6); WBC 11.7 K/uL (4.0-11.0)
[2016-08-10 06:39] LABS: PLATELET COUNT 355 K/uL (150-450)
[2016-08-10 06:45] LABS: INR - (THERAPEUTIC) 1.1 (0.9-1.1); PROTIME 11.3 SECONDS (9.6-11.1); PTT 30 SECONDS (25-32)
[2016-08-10 07:14] LABS: BLOOD UREA NITROGEN 14 mg/dL (6-24); CALCIUM 8.6 mg/dL (8.5-10.5); CHLORIDE 98 mMol/L (96-110); CO2 27 mMol/L (22-32); CREATININE 0.7 mg/dL (0.5-1.1); ESTIMATED GFR (MDRD EQUATION) > 60; SODIUM 134 mMol/L (135-145); TOTAL PROTEIN 5.4 g/dL (6.0-8.4)
[2016-08-10 07:17] LABS: ALBUMIN 1.9 gm/dL (3.5-5.0); ALT 458 IU/L (12-78); ANION GAP 12.7 (10.0-19.0); AST 445 IU/L (10-40); MAGNESIUM 2.2 mg/dL (1.3-2.6); POTASSIUM 3.7 mMol/L (3.7-5.1); TOTAL BILIRUBIN 17.3 mg/dL (0.0-1.5)
[2016-08-10 07:39] LABS: ALK PHOS 1101 IU/L (33-138)
--- NOTE | 2016-08-10 19:00 | NUR ---
Significant Event: Patient A/O x 3 but forgetful. VSS on RA. Blood sugar 48 this morning. Brought up to 115 with food/juice. Patient is ACHS accu checks and carb counts. Up ambulating in halls today. Did better today than yesterday. Son at bedside throughout the day. RFA PIV SL. Follow up: Continue as per plan of care.
[2016-08-11 03:39] LABS: BASOPHIL # 0.1 K/uL (0.0-0.2); BASOPHIL % 0.6 %; EOSINOPHIL # 0.2 K/uL (0.0-0.5); EOSINOPHIL % 1.6 %; HEMATOCRIT 38.9 % (33.0-46.0); HEMOGLOBIN 12.4 g/dL (10.0-15.0); IMMATURE GRANULOCYTE # 0.1 K/uL (0.0-0.3); IMMATURE GRANULOCYTE % 0.7 %; LYMPHOCYTE % 10.8 %; MCH 26.9 pg (27.0-34.0); MCHC 31.9 gm/dL (32.0-36.5); MCV 84.4 fl (83.0-98.0); MONOCYTE # 1.5 K/uL (0.0-1.0); MONOCYTE % 15.6 %; NEUTROPHIL # (ANC) 6.8 K/uL (1.8-7.8); NEUTROPHIL % 70.7 %; NRBC % 0 /100WBC (0-0.00); PLATELET COUNT 323 K/uL (150-450); RBC 4.61 M/uL (3.50-5.50); WBC 9.6 K/uL (4.0-11.0)
[2016-08-11 04:02] LABS: BLOOD UREA NITROGEN 15 mg/dL (6-24); CALCIUM 8.6 mg/dL (8.5-10.5); CHLORIDE 93 mMol/L (96-110); CO2 27 mMol/L (22-32); CREATININE 0.9 mg/dL (0.5-1.1); ESTIMATED GFR (MDRD EQUATION) > 60; SODIUM 133 mMol/L (135-145); TOTAL BILIRUBIN 17.9 mg/dL (0.0-1.5); TOTAL PROTEIN 5.5 g/dL (6.0-8.4)
[2016-08-11 04:10] LABS: ALBUMIN 1.9 gm/dL (3.5-5.0); ALT 473 IU/L (12-78); ANION GAP 16.7 (10.0-19.0); AST 422 IU/L (10-40); MAGNESIUM 2.1 mg/dL (1.3-2.6)
[2016-08-11 04:11] LABS: POTASSIUM 3.7 mMol/L (3.7-5.1)
[2016-08-11 04:13] LABS: ALK PHOS 1101 IU/L (33-138)
--- NOTE | 2016-08-11 04:24 | NUR ---
Significant Event:VSS.RA.PT C/O PAIN TO R SHOUDLER,ICE APPLIED AND PERCOCET GIVEN. PT UP MULTIPLE TIMES TO BSC, LEGS WEAK THIS SHIFT. PT SLEPT OFF/ON THIS SHIFT. Follow up:RESULTS PENDING
--- NOTE | 2016-08-12 04:29 | NUR ---
Significant Event:VSS.RA.PT C/O PAIN TO R SHOULDER, ICE AND PERCOCET GIVEN. PT SHOWERED THIS SHIFT W/1ASSIST. PT HAS SHUFFLE GAIT AND AT TIMES UNABLE TO MOVE FEET APPROPRIATELY AND LEANS TO THE RIGHT, MAX 2 ASSIST, MAY NEED TO USE LIFT FOR SAFETY. PT UP IN CHAIR MOST OF THE SHIFT THEN BACK TO BED Follow up: CONT TO MONITOR
[2016-08-12 05:52] LABS: INR - (THERAPEUTIC) 1.1 (0.9-1.1); PROTIME 11.4 SECONDS (9.6-11.1)
--- NOTE | 2016-08-12 15:33 | NUR ---
Significant Event: VSS AND RA, DENIES NEED FOR PAIN MED. BS WAS 45/48 THIS AM, ASYMPTOMATIC FROM HER BASELINE NEURO STATUS; GAVE JUICE AND BREAKFAST-RECHECK WAS 68 AND AFTER BREAKFAST WAS 135. LEVEMIR DECREASED FOR TONIGHT'S DOSE. WORKED WITH OT IN BED AND DANGLED THIS AM & WAS ABLE TO GET UP TO THE BSC AND CHAIR FOR A FEW HOURS TODAY AND AMBULATE WITH PT TO HER DOOR AND BACK TO BED THIS AFTERNOON. DR. JEFFERY CONSULTED FOR TOMORROW. MIRALAX AND DULCOLAX SUPP GIVEN-TO REPEAT SUPP THIS EVENING IF NO RESULTS. INCONTINENT OF URINE. 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 Follow up: NPO P MN FOR OR, AWAITING LABS FOR ONCOLOGY-MON/TU FOR LIVER DX. REPEAT SUPP TONITE IF NO BM.
[2016-08-13 04:42] LABS: BASOPHIL # 0.1 K/uL (0.0-0.2); BASOPHIL % 0.5 %; EOSINOPHIL # 0.1 K/uL (0.0-0.5); EOSINOPHIL % 1.2 %; HEMATOCRIT 38.2 % (33.0-46.0); HEMOGLOBIN 12.5 g/dL (10.0-15.0); IMMATURE GRANULOCYTE # 0.1 K/uL (0.0-0.3); IMMATURE GRANULOCYTE % 0.6 %; LYMPHOCYTE # 1.5 K/uL (0.8-4.0); LYMPHOCYTE % 13.4 %; MCH 27.5 pg (27.0-34.0); MCHC 32.7 gm/dL (32.0-36.5); MONOCYTE # 1.6 K/uL (0.0-1.0); MONOCYTE % 13.8 %; MPV 11.1 fl (9.4-12.4); NEUTROPHIL # (ANC) 7.9 K/uL (1.8-7.8); NEUTROPHIL % 70.5 %; NRBC % 0 /100WBC (0-0.00); PLATELET COUNT 312 K/uL (150-450); RBC 4.55 M/uL (3.50-5.50); RDW-CV 17.2 % (11.9-14.6); WBC 11.3 K/uL (4.0-11.0)
[2016-08-13 04:52] LABS: BLOOD UREA NITROGEN 19 mg/dL (6-24); CALCIUM 8.9 mg/dL (8.5-10.5); CO2 30 mMol/L (22-32); PHOSPHORUS 2.6 mg/dL (2.5-4.9); SODIUM 129 mMol/L (135-145)
--- NOTE | 2016-08-13 04:54 | NUR ---
Significant Event:VSS.RA.PT NPO AFTER MIDNIGHT.0300 CBG 80,APPLE JUICE GIVEN. PT C/O R SHOULDER PAIN, ICE PACK AND PERCOCET GIVEN. PT RUNNING NS @ 75ML/HR. INCREASED WEAKNESS, MAX 2 ASST. LG HARD BM AFTER 2 SUPOSSITORIES. INCONT OF URINE CONT TO CHANGE REGULARLY. Follow up: CONSENT SIGNED, SHOE WORKER SHUNT SURGERY
[2016-08-13 05:00] LABS: ALBUMIN 1.7 gm/dL (3.5-5.0); CHLORIDE 87 mMol/L (96-110); CREATININE 0.8 mg/dL (0.5-1.1); ESTIMATED GFR (MDRD EQUATION) > 60; MAGNESIUM 2.1 mg/dL (1.3-2.6)
--- NOTE | 2016-08-13 13:18 | NUR ---
A - NUT F/U. 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 DECREASED APPETITE. LABS: ACCUCHECK 48->300, NA 129, ALB 1.7, TOT BILI 17.9, ALK PHOS 1101, AST 422, ALT 473, WBC 11.3 MEDS: LEVEMIR, IVF, LASIX, ALDACTONE, BOWEL, SSI DIET: NPO. WAS REGULAR. INTAKE: BITES-100%, AVG ~43% ENSURE @ B NEEDS: 6982-1775 KCAL, 84-101 G PRO D - INADEQUATE NUTRIENT INTAKE R/T DECREASED APPETITE, FREQUENT NPO STATUS AEB INTAKE RECORD, DIET ORDER HX. I - GOAL FOR INTAKE 50-75% BY NEXT ASSESSMENT. WILL INC ENSURE TO TID. M/E - WILL MONITOR INTAKE F/U IN 3-5 DAYS.
--- NOTE | 2016-08-13 16:02 | NUR ---
PATIENT TRANSFERED TO SURGERY THIS AM AT 10:25 PER BED W/ TRANSPORT STAFF. PATIENT TO NEURO-TRAUMA UNIT AFTER SURGERY. REPORT GIVEN TO RN AT 15:55 BY BARBI Wilson RN. REVIEWED ASSESSMENT, INCLUDING NEURO ASSESSMENT, FALL RISK, LAST VITALS, LAST BM, AND MEDICATIONS GIVEN. SON NOTIFIED OF TRANSFER.
--- NOTE | 2016-08-13 17:14 | NUR ---
Significant Event: PATIENT ARRIVED FROM PACU AT 1615. ALERT TO SELF AND TIME. FOLLOWS COMMANDS. PUPILS 2MM, BRISK. MODERATE STRENGTH, DENIES NUMBNESS/TINGLING. DRESSING TO RT SIDE OF HEAD AND RT ABDOMEN FROM SHUNT. DENIED PAIN IN PACU BUT THEN HEADACHE GOT TO A 9. 2MG DILAUDID GIVEN AT 1650, BUT THEN PATIENT HURTING PRETTY BAD SO GAVE ADDITIONAL 2MG ORDER IS FOR UP TO 4MG. LUNGS CLEAR AND DIM ,CURRENTLY ON 2 LITERS. IV INFUSING IN LEFT WRIST. INCONTINENT OF URINE. REMAINS VERY JAUNDICED. HAD A BM THIS YESTERDAY. ACCUCHECKS PER PCU WAS LOW THIS AM SO DEXTROSE GIVEN. ACCUCHECK NOT CHECKED IN SURGERY/PACU AND WHEN PATIENT GOT TO THE FLOOR IT WAS 65. SHE HAD SOME JELLO AND JUICE, RECHECK WAS 87. SUPPER TRAY WILL BE COMING. DR HAWK HERE AT THIS TIME TO FOLLOW PATIENT REGARDING LIVER NEOPLASM THEY FOUND PRIOR TO TODAY. ALARMS ON FOR SAFETY. Follow up: PAIN CONTROL. POST OP. ACCUCHECKS AC/HS.
[2016-08-14 04:50] LABS: BASOPHIL # 0.1 K/uL (0.0-0.2); BASOPHIL % 0.5 %; EOSINOPHIL # 0.1 K/uL (0.0-0.5); EOSINOPHIL % 0.9 %; HEMATOCRIT 39.6 % (33.0-46.0); HEMOGLOBIN 12.6 g/dL (10.0-15.0); IMMATURE GRANULOCYTE # 0.1 K/uL (0.0-0.3); IMMATURE GRANULOCYTE % 0.5 %; LYMPHOCYTE # 1.3 K/uL (0.8-4.0); LYMPHOCYTE % 11.6 %; MCH 27.4 pg (27.0-34.0); MCHC 31.8 gm/dL (32.0-36.5); MCV 86.1 fl (83.0-98.0); MONOCYTE # 1.5 K/uL (0.0-1.0); MONOCYTE % 13.9 %; MPV 10.7 fl (9.4-12.4); NEUTROPHIL # (ANC) 7.9 K/uL (1.8-7.8); NEUTROPHIL % 72.6 %; NRBC % 0 /100WBC (0-0.00); PLATELET COUNT 335 K/uL (150-450); RDW-CV 17.5 % (11.9-14.6); WBC 10.9 K/uL (4.0-11.0)
[2016-08-14 05:01] LABS: INR - (THERAPEUTIC) 1.1 (0.9-1.1); PROTIME 11.9 SECONDS (9.6-11.1); PTT 32 SECONDS (25-32)
[2016-08-14 05:14] LABS: CALCIUM 8.7 mg/dL (8.5-10.5)
[2016-08-14 05:18] LABS: ALBUMIN 1.7 gm/dL (3.5-5.0); ANION GAP 19.1 (10.0-19.0); POTASSIUM 4.1 mMol/L (3.7-5.1); TOTAL BILIRUBIN 20.9 mg/dL (0.0-1.5)
[2016-08-14 05:19] LABS: TOTAL PROTEIN 5.2 g/dL (6.0-8.4)
--- NOTE | 2016-08-14 05:24 | NUR ---
Significant Event: Pt POD #1 from [facility] shunt placement. Pt A&Ox3. Follows commands. Weak on plantar flexion and extension; hand grasps moderate. PERRLA 2mm. Dressing placed to Rt side of head, slight shadowing, and abd (CDI). Did c/o headache earlier in shift, but no new c/o headache since. LS clear/diminished, RA. VS stayed stable overnight. Incontinent of bladder. Skin and eyes remain very jaundiced. PIV Lt wrist, SL. Accuchecks ACHS, SSI mild, carb count insulin, and levemir. Held levemir and carb count insulin d/t low BS after returning to floor. Bowel sounds remain active, but pt states no flatus passed yet. Eating and drinking fine. Heme/onc on case to follow pt regarding liver neoplasm found prior to today--prognosis poor. Follow up:
--- NOTE | 2016-08-14 10:40 | NUR ---
Diabetes consult: Patient with hypoglycemic events noted on hypo report. The patient reports she does feel "shakey" with low blood sugars. Patient was NPO yesterday. She states that she was able to eat her breakfast and fasting blood sugar this morning improved to 148. Will continue to monitor blood sugars trends. Patient denies questions or needs.
--- NOTE | 2016-08-14 12:22 | NUR ---
Reviewed chart and talked with UMER Garcia for hospitalist. Dr Ruiz seeing pt today. I called and left a message for Aleksandra on [facility] to see if they can accept and when. Will follow.
--- NOTE | 2016-08-14 18:41 | NUR ---
Significant Event: a/o to person, place and at times month or year. is very slow to respond and at times does not respond at all. denies numbness/tingling. equal strength throughout. dsg to right side of head dry/intact. dsg to abdomen clean/dry/intact. prn percocet for pain management. 2-3 assist with transfers. continent/incontinent of urine. two large bowel movements this shift. takes meds whole. ADA diet. Accuchecks ac/hs. Joseph consult today. jayy cervantes ordered- on in am off at hs. NA 131 today with no new orders. will continue to monitor. drank 1600ml of water this shift. discharge plan ?[facility]P when ready.
--- NOTE | 2016-08-15 04:14 | NUR ---
Significant Event: The patient is Alert and Oriented x3, Forgetful at times, slow to respond. Moves all extremities spontaneously and to command. Denies Numbness and Tingling. Up with Heavy 2-3 Person Pivot or Full Lift. Incontinent of bladder. Pain to Incision sites gave Percocet at 0333. PIV to the Left Forearm saline locked. Skin is Jaundice. VSS, On 1L oxygen while sleeping. Incision to her head and abdomen covered with a dressing. Accu checks AC/HS + carb count. Generalized weakness. Follow up:
[2016-08-15 04:33] LABS: CALCIUM 8.4 mg/dL (8.5-10.5)
[2016-08-15 04:35] LABS: ALBUMIN 1.7 gm/dL (3.5-5.0); ANION GAP 16.4 (10.0-19.0); CREATININE 1.1 mg/dL (0.5-1.1); MAGNESIUM 2.2 mg/dL (1.3-2.6); PHOSPHORUS 1.7 mg/dL (2.5-4.9); POTASSIUM 3.4 mMol/L (3.7-5.1)
--- NOTE | 2016-08-15 11:25 | NUR ---
Talked with UMER Garcia and then with Aleksandra, manager social on [facility] re[facility]. Pt has some encephalopathy that should clear and will be a good candidate for inpt rehab per Evelyn, is young, lived at home alone, and pt and family want to aggressively pursue therapies to get home again, despite new cancer diagnosis, thinks in a couple days will be much better and ready for 3 hours of therapy. Would not start any cancer treatment until heals from the PAPER TWISTER TENDER shunt. Aleksandra will call acute care physician when she comes in tomorrow afternoon and assess and see if ready for rehab on Saturday.
--- NOTE | 2016-08-15 17:50 | NUR ---
Significant Event: a/o to person with first assessment and x 3 with third assessment. drowsy/falls asleep easily. is slow speaking and very slow to respond to questions asked. at times does not answer questions at all. confused conversationally- short term memory impairment. denies numbness/tingling. equal strength throughout. dsg to right side of head and right side of abdomen dry/intact. very jaundice throughout. was on one liter of oxygen with first assessment and room air for rest of shift. tele with NSR. full lift with transfers. incontinent of bowel and bladder. did receive stool softeners this shift and had xtra large loose bowel movement after. feeds self with set up and cueing. may need fed when tired. accuchecks ac/hs. accucheck initially this am was 52. Please ensure patient receives a HS drink/snack. sodium this am 130. potassium 3.4. Dr. Yanez and dr. Avila rounded on patient today.
--- NOTE | 2016-08-16 04:19 | NUR ---
Significant Event: Alert and oriented x3. Confused at times. Forgetful at times but will reorient. Pt slow to respond. Has equal strength in upper extremites. Lower extremities are billaterally weaker than upper extremities. On tele SR. VSS. RA lungs clear. Diabetic diet. 1:1 feeder when drowsy. NPO since 0000 due to PET scan. On IV fluids NS with 20 KCL running in R) forearm. Inc of bowel and bladder had several loose BMs during the night due to laxatives given during the day. Pt refused stool softeners and laxatives with 2100 meds. Drsg to Abdomin C/D/I. Drsg to head C/D/I. Pt denied pain meds but does state that the incesion site on abdomin feels like it is pulling when she rolls to her sides. IV to L) forearm SL. Able to take pills 2 at a time in water or juice. Follow up: PET scan today at 1000. Echo scheduled for this am. Chemo to be given by charge nurse from [facility] they are aware but may need to be called and reminded today.
[2016-08-16 04:33] LABS: BASOPHIL % 0.4 %; EOSINOPHIL # 0.2 K/uL (0.0-0.5); EOSINOPHIL % 1.8 %; HEMATOCRIT 38.6 % (33.0-46.0); HEMOGLOBIN 12.3 g/dL (10.0-15.0); IMMATURE GRANULOCYTE # 0.1 K/uL (0.0-0.3); IMMATURE GRANULOCYTE % 1.4 %; LYMPHOCYTE # 1.1 K/uL (0.8-4.0); LYMPHOCYTE % 11.1 %; MCH 27.2 pg (27.0-34.0); MCHC 31.9 gm/dL (32.0-36.5); MCV 85.4 fl (83.0-98.0); MONOCYTE # 1.6 K/uL (0.0-1.0); MONOCYTE % 16.4 %; MPV 10.5 fl (9.4-12.4); NEUTROPHIL # (ANC) 6.8 K/uL (1.8-7.8); NEUTROPHIL % 68.9 %; NRBC % 0 /100WBC (0-0.00); PLATELET COUNT 315 K/uL (150-450); RBC 4.52 M/uL (3.50-5.50); RDW-CV 17.2 % (11.9-14.6); WBC 9.9 K/uL (4.0-11.0)
[2016-08-16 04:59] LABS: ALT 223 IU/L (12-78); CALCIUM 8.5 mg/dL (8.5-10.5); CO2 29 mMol/L (22-32); SODIUM 130 mMol/L (135-145)
[2016-08-16 05:00] LABS: ALBUMIN 1.6 gm/dL (3.5-5.0); ANION GAP 16.3 (10.0-19.0); CHLORIDE 89 mMol/L (96-110); CREATININE 0.8 mg/dL (0.5-1.1); ESTIMATED GFR (MDRD EQUATION) > 60; TOTAL BILIRUBIN 21.2 mg/dL (0.0-1.5)
[2016-08-16 05:01] LABS: AST 371 IU/L (10-40); BLOOD UREA NITROGEN 21 mg/dL (6-24); MAGNESIUM 2.4 mg/dL (1.3-2.6); POTASSIUM 4.3 mMol/L (3.7-5.1); TOTAL PROTEIN 4.9 g/dL (6.0-8.4)
[2016-08-16 05:13] LABS: ALK PHOS 1019 IU/L (33-138)
--- NOTE | 2016-08-16 14:17 | NUR ---
I did leave a vm on Aleksandra's phone with the update. Will continue to follow.
--- NOTE | 2016-08-16 14:56 | NUR ---
A - NUT F/U. CONFUSED AT TIMES. LARGE B-CELL LYMPHOMA OF LIVER. NEEDS PET SCAN. CHEMO STARTED. NEEDS FED WHEN SLEEPY. JAUNDICE. LABS: ACCUCHECK 52->200, NA 130, ALB 1.6, TOT BILI 21.2, ALK PHOS 1019, AST 371, ALT 223, PHOS 1.7 MEDS: IVF, KCL, K-PHOS, LACTULOSE, REGLAN, LASIX, ALDACTONE, BOWEL/NAUSEA, SSI DIET: REG. INTAKE: MOSTLY 50-100%. ENSURE TID NEEDS: 3224-4699 KCAL, 84-101 G PRO D - INCREASED NUTRIENT NEEDS R/T CATABOLIC DZ PROCESS AEB LYMPHOMA W/ CHEMO. I - GOAL FOR INTAKE 50-100% FOR DURATION OF STAY. WILL CONTINUE ENSURE TID. M/E - WILL MONTIOR INTAKE F/U NI 4-6 DAYS.
--- NOTE | 2016-08-16 15:24 | NUR ---
Significant Event:A/O x 3, forgetful, slow to respond at times. VSS, Upper extemities stronger than lower extremities. Follows commands, interacts with family member. Able to ask for needs. Remains jaundice. Dsg to R posterior head is CDI/stapled, Dsgs x 2 to abdomen bx site and lower UPSETTER shunt site are dry/intact, with small amounts of old drainage noted. Echo done. Chemo started today per chemo RN. Pt is tolerating process well. Unable to have PE scan today, possibly have it tomorrow, Dr. Yanez notified. NS w/20KCL@100ml/hr infusing in RFA, Chemo infusing in L FA IV. L wrist IVSL. Incontinent of urine, and BM. Follow up:NPO after MD, for PET SCAN
--- NOTE | 2016-08-17 03:07 | NUR ---
Significant Event: Patient is alert and oriented x 3. Talkative. Slow to respond at times. Forgetful. Has used call light appropriately. Drowsy at times. Has not been impulsive. PERRL. Moves spontaneously and follows commands. BLE weaker. Moderate strength to BUE. 2+ pulses. Denies pain, numbness, or tingling. VSS. Afebrile. HTN. Generalized edema. On room air. Lungs clear and diminished. Works on IS and ankle pumps. SCDs in place. Dressings to abdomen with scant amount of dried drainage intact. Dressing to right side of head stapled and is dry and intact with dried drainage. Jaundice throughout. IV to right forearm D/C. NS infusing at 100 mL/hr to left forearm and also has another SL to left forearm that infusing without complications. Incontinent or urine and bowel-sometimes knows when she has gone. Repositioned every 2 hours. Chemo precautions. Full lift. Follow up: reposition Q2H, bone marrow bx at bedside at 0830 (gloves outside room)
[2016-08-17 05:10] LABS: HEMATOCRIT 39.5 % (33.0-46.0); HEMOGLOBIN 12.6 g/dL (10.0-15.0); MCH 27.6 pg (27.0-34.0); MCHC 31.9 gm/dL (32.0-36.5); MCV 86.6 fl (83.0-98.0); MPV 10.3 fl (9.4-12.4); PLATELET COUNT 328 K/uL (150-450); RBC 4.56 M/uL (3.50-5.50); WBC 9.5 K/uL (4.0-11.0)
[2016-08-17 05:14] LABS: CALCIUM 7.9 mg/dL (8.5-10.5); CHLORIDE 91 mMol/L (96-110); CO2 25 mMol/L (22-32); PHOSPHORUS 5.3 mg/dL (2.5-4.9)
[2016-08-17 05:15] LABS: ALBUMIN 1.5 gm/dL (3.5-5.0); ANION GAP 18.4 (10.0-19.0); BLOOD UREA NITROGEN 41 mg/dL (6-24); CREATININE 0.9 mg/dL (0.5-1.1); ESTIMATED GFR (MDRD EQUATION) > 60; POTASSIUM 5.4 mMol/L (3.7-5.1); SODIUM 129 mMol/L (135-145)
[2016-08-17 07:10] LABS: ABSOLUTE NEUTROPHIL CT (ANC) 8.7 K/uL (1.8-7.8); BANDED NEUTROPHIL # 0.5 K/uL (0.0-0.1); BANDED NEUTROPHILS % 5 %; LYMPHOCYTE # 0.3 K/uL (0.8-4.0); LYMPHOCYTE % 3 %; MONOCYTE # 0.5 K/uL (0.0-1.0); SEGMENTED NEUTROPHIL # 8.3 K/uL (1.8-7.8); SEGMENTED NEUTROPHIL % 87 %
[2016-08-17 08:04] LABS: BLOOD UREA NITROGEN 44 mg/dL (6-24); CALCIUM 7.7 mg/dL (8.5-10.5); CHLORIDE 93 mMol/L (96-110); CO2 25 mMol/L (22-32); PHOSPHORUS 5.6 mg/dL (2.5-4.9); SODIUM 130 mMol/L (135-145)
[2016-08-17 08:06] LABS: ALBUMIN 1.5 gm/dL (3.5-5.0); ANION GAP 17.1 (10.0-19.0); CREATININE 0.9 mg/dL (0.5-1.1); ESTIMATED GFR (MDRD EQUATION) > 60
[2016-08-17 08:07] LABS: POTASSIUM 5.1 mMol/L (3.7-5.1)
--- NOTE | 2016-08-17 15:37 | NUR ---
Significant Event: A/O X3. Forgetful at times. PERRLA. 3BB. Moderate strength to arms. Weakness noted to bilateral legs. VSS. Afebrile. Generalized edema noted. Currently on 2L while sleeping. Lungs clear and diminished. Jaundice color. Incontinent of urine and bladder. [place] to back of head removed. Drsg to abdomen changed this shift. L) FA PIV infusing with no complications. PICC to R) upper placed this AM. Full lift. Accuchecks ACHS. Afternoon accucheck 462. MD notified. Denies pain. Chemo precautions. Pleasant and cooperative with cares. Follow up:
[2016-08-17 19:12] LABS: BLOOD URINE 10 /UL (NEGATIVE); COLOR URINE YELLOW (YELLOW); GLUCOSE URINE 1000 mg/dL (NEGATIVE); KETONE URINE NEGATIVE (NEGATIVE); LEUKOCYTES URINE 25 /UL (NEGATIVE); NITRITE URINE NEGATIVE (NEGATIVE); PH URINE 6.5 (4.0-8.0); PROTEIN URINE NEGATIVE (NEGATIVE); TURBIDITY URINE 1+ (CLEAR); UROBILINOGEN URINE 4 mg/dL (NORMAL)
[2016-08-17 19:26] LABS: BACTERIA URINE NEGATIVE (NEGATIVE)
[2016-08-17 19:36] LABS: CHLORIDE 91 mMol/L (96-110); CO2 26 mMol/L (22-32); CREATININE 0.9 mg/dL (0.5-1.1); ESTIMATED GFR (MDRD EQUATION) > 60; PHOSPHORUS 3.9 mg/dL (2.5-4.9); SODIUM 127 mMol/L (135-145)
[2016-08-17 19:45] LABS: ALBUMIN 1.5 gm/dL (3.5-5.0); ANION GAP 14.7 (10.0-19.0); BLOOD UREA NITROGEN 56 mg/dL (6-24); CALCIUM 7.3 mg/dL (8.5-10.5)
[2016-08-17 19:46] LABS: POTASSIUM 4.7 mMol/L (3.7-5.1)
[2016-08-17 22:49] LABS: ANION GAP 15.3 (10.0-19.0); POTASSIUM 4.3 mMol/L (3.7-5.1)
[2016-08-17 22:50] LABS: CALCIUM 7.3 mg/dL (8.5-10.5); MAGNESIUM 2.4 mg/dL (1.3-2.6)
[2016-08-18 00:37] LABS: CALCIUM 7.6 mg/dL (8.5-10.5); CHLORIDE 93 mMol/L (96-110); CO2 24 mMol/L (22-32); CREATININE 0.8 mg/dL (0.5-1.1); ESTIMATED GFR (MDRD EQUATION) > 60; SODIUM 130 mMol/L (135-145)
[2016-08-18 00:41] LABS: ANION GAP 17.5 (10.0-19.0); POTASSIUM 4.5 mMol/L (3.7-5.1)
[2016-08-18 00:46] LABS: BLOOD UREA NITROGEN 51 mg/dL (6-24); MAGNESIUM 2.6 mg/dL (1.3-2.6)
[2016-08-18 02:50] LABS: BLOOD UREA NITROGEN 49 mg/dL (6-24); CALCIUM 7.6 mg/dL (8.5-10.5); CHLORIDE 95 mMol/L (96-110); CO2 25 mMol/L (22-32); CREATININE 0.8 mg/dL (0.5-1.1); ESTIMATED GFR (MDRD EQUATION) > 60
[2016-08-18 02:51] LABS: ANION GAP 16.2 (10.0-19.0); MAGNESIUM 2.6 mg/dL (1.3-2.6); POTASSIUM 4.2 mMol/L (3.7-5.1); SODIUM 132 mMol/L (135-145)
--- NOTE | 2016-08-18 04:32 | NUR ---
Significant Event: Patient is alert and oriented x 3. Forgetful. More alert and talkative by third assessment. Slow to respond at times. Demonstrates ability to use call light appropriately but has not used this shift. Drowsy for most of the shift but very easily arousable. Has not been impulsive. PERRL. Moves spontaneously and follows commands. BLE weaker. Moderate strength to BUE. 2+ pulses. Denies pain, numbness, or tingling. VSS. Afebrile. HTN. Generalized edema. Weaned to RA at this time. Lungs clear and diminished. Works on IS and ankle pumps when reminded. SCDs in place. Dressings to abdomen and back of head (right side) dry and intact. Jaundice throughout. NS infusing at 75 mL/hr to PICC in right upper arm with no complications. Insulin gtt also infusing to PICC line, currently infusing at 10 units/hr. BMP and Mg drawn Q2H while on insulin gtt-done on the even hours. Starting to have complications with PICC line not giving enough blood-flushes without complications. Lab karmen 0400 labwork d/t unable to obtain enough blood. SL to left forearm x 2 flush without difficulties. Incontinent or urine and bowel-sometimes knows when she has gone. Repositioned every 2 hours. Chemo precautions. Full lift. Follow up: reposition Q2H, insulin gtt/accucheks every hour, call all BMP and Mg results to Dr. Doss
[2016-08-18 05:05] LABS: BLOOD UREA NITROGEN 48 mg/dL (6-24); CALCIUM 7.5 mg/dL (8.5-10.5); CHLORIDE 98 mMol/L (96-110); CO2 26 mMol/L (22-32); CREATININE 0.7 mg/dL (0.5-1.1); ESTIMATED GFR (MDRD EQUATION) > 60
[2016-08-18 05:06] LABS: MAGNESIUM 2.4 mg/dL (1.3-2.6); SODIUM 134 mMol/L (135-145)
[2016-08-18 06:15] LABS: HEMATOCRIT 35.3 % (33.0-46.0); HEMOGLOBIN 11.5 g/dL (10.0-15.0)
[2016-08-18 06:35] LABS: ANION GAP 13.9 (10.0-19.0); BLOOD UREA NITROGEN 46 mg/dL (6-24); CALCIUM 7.7 mg/dL (8.5-10.5); CHLORIDE 98 mMol/L (96-110); CO2 26 mMol/L (22-32); CREATININE 0.7 mg/dL (0.5-1.1); ESTIMATED GFR (MDRD EQUATION) > 60; PHOSPHORUS 3.5 mg/dL (2.5-4.9); POTASSIUM 3.9 mMol/L (3.7-5.1); SODIUM 134 mMol/L (135-145)
[2016-08-18 06:36] LABS: ALBUMIN 1.5 gm/dL (3.5-5.0)
--- NOTE | 2016-08-18 10:01 | NUR ---
CONSULT NOTED. ALREADY FOLLOWING AND APPROPRIATE INTERVENTIONS IN PLACE.
--- NOTE | 2016-08-18 16:05 | NUR ---
ULTRA HIGH FALL RISK Significant Event: A/O X3, forgetful, jaundiced, full lift, R)head incision sutures intact, drsg. to abdomen D/I. transfered to BSC w/ 2 PT, incontinent bowel/bladder, poor PO intake, restarted Insulin IV at 1430 generalized edema, lungs Dim. BLL, son @ bedside. Follow up: chemo precautions, 0600 lab -call results. hourly accuchecks
[2016-08-18 18:10] LABS: BLOOD UREA NITROGEN 45 mg/dL (6-24); CALCIUM 7.5 mg/dL (8.5-10.5); CHLORIDE 95 mMol/L (96-110); CO2 23 mMol/L (22-32); CREATININE 0.7 mg/dL (0.5-1.1); ESTIMATED GFR (MDRD EQUATION) > 60; PHOSPHORUS 2.6 mg/dL (2.5-4.9); SODIUM 130 mMol/L (135-145)
[2016-08-18 18:11] LABS: ALBUMIN 1.5 gm/dL (3.5-5.0)
--- NOTE | 2016-08-19 03:23 | NUR ---
Significant Event: Patient is alert and oriented x 3. Forgetful. More alert and talkative this shift. Slow to respond at times. Uses call light appropriately. Drowsy for most of the shift but very easily arousable. Has not been impulsive. PERRL. Moves spontaneously and follows commands. BLE weaker. Moderate strength to BUE. 2+ pulses. Denies pain, numbness, or tingling. VSS. Afebrile. HTN. Generalized edema. On RA. Lungs clear and diminished. Works on IS and ankle pumps when reminded. SCDs in place. Dressing to abdomen C/D/I. Surgical site to back of head (right side) with edges well approximated. Jaundice throughout. NS infusing at 75 mL/hr to PICC in right upper arm with no complications. Insulin gtt also infusing to PICC line. Order available to cath pio PICC line. Left forearm x 2 flush without difficulties. Incontinent or urine and bowel-sometimes knows when she has gone. Repositioned every 2 hours. Up to chair throughout the shift. precautions. Full lift, hourly accucheks
[2016-08-19 06:33] LABS: ANION GAP 14.5 (10.0-19.0); BLOOD UREA NITROGEN 37 mg/dL (6-24); CALCIUM 7.6 mg/dL (8.5-10.5); CHLORIDE 97 mMol/L (96-110); CO2 27 mMol/L (22-32); CREATININE 0.6 mg/dL (0.5-1.1); ESTIMATED GFR (MDRD EQUATION) > 60; PHOSPHORUS 2.4 mg/dL (2.5-4.9); POTASSIUM 4.5 mMol/L (3.7-5.1); SODIUM 134 mMol/L (135-145)
[2016-08-19 06:37] LABS: ALBUMIN 1.5 gm/dL (3.5-5.0)
--- NOTE | 2016-08-19 19:25 | NUR ---
*ULTRA HIGH FALL RISK Significant Event: A/O X3, more alert today, 2 assist/gait belt/walker, ambulated to door x2 with PT, ambulated to BR, showered, fatigues, jaundiced, already incontinent before she [place] [facility] [place], Saline lock x2 to LUE, sutures D/I to R)head, drsg D/I to abdomen, IV insulin infusion, generalized edema, Follow up: hourly accuchecks,
--- NOTE | 2016-08-20 04:12 | NUR ---
Significant Event: Patient is alert and oriented x 3. Forgetful. Drowsy at times but very easily arousable. Slow to respond at times. Uses call light appropriately. Has not been impulsive. PERRL. Moves spontaneously and follows commands. BLE weaker. Moderate strength to BUE. 2+ pulses. Denies pain, numbness, or tingling. VSS. Afebrile. HTN. Generalized edema. On RA. Lungs clear and diminished. Works on IS and ankle pumps when reminded. SCDs in place. Dressing to abdomen C/D/I. Surgical site to back of head (right side) with edges well approximated. Jaundice throughout. IVF infusing at 75 mL/hr to PICC in right upper arm with no complications. Insulin gtt also infusing to PICC line. Order available to cath pio PICC line. Left forearm IV x 2 flush without difficulties. Incontinent or urine and bowel-sometimes knows when she has gone. Up to bedside commode x 1. Repositioned every 2 hours. Ate well for supper. Follow up: insulin gtt, activity, reposition
[2016-08-20 10:08] LABS: BLOOD UREA NITROGEN 27 mg/dL (6-24); CALCIUM 7.9 mg/dL (8.5-10.5); CHLORIDE 94 mMol/L (96-110); CO2 26 mMol/L (22-32); CREATININE 0.6 mg/dL (0.5-1.1); ESTIMATED GFR (MDRD EQUATION) > 60; PHOSPHORUS 2.4 mg/dL (2.5-4.9); SODIUM 130 mMol/L (135-145)
[2016-08-20 10:11] LABS: ALBUMIN 1.6 gm/dL (3.5-5.0); ANION GAP 14.2 (10.0-19.0); POTASSIUM 4.2 mMol/L (3.7-5.1)
--- NOTE | 2016-08-20 13:20 | NUR ---
A - NUT F/U. FORGETFUL. LIQUID STOOLS. DECREASED APPETITE. DRINKING ENSURE. B-CELL LYMPHOMA. PCM LABS: ACCUCHECK 56-REAS, NA 130, GLU 121, BUN/CR 27/0.6, ALB 1.6, PHOS 2.4 MEDS: D5NS @ 75 ML/HR, BACTRIM DS, INSULIN, KPHOS, LACTULOSE, REGLAN, LASIX, NAUSEA, ALDACTONE, KELFEX DIET: REG. INTAKE: REF-SIPS x 8, 75-100x 1. ENSURE TID - DRINKING NEEDS: 3496-7448 KCAL, 84-101 G PRO D - INADEQUATE NUTRIENT INTAKE R/T DECREASED APPETITE AEB INTAKE RECORD. I - GOAL FOR INCREASED ORAL INTAKE. WILL CONTINUE ENSURE TID WILL ADD ENSURE PUDDING @ L&D M/E - WILL MONITOR INTAKE F/U IN 3-4 DAYS.
--- NOTE | 2016-08-20 20:05 | NUR ---
ULTRA HIGH FALL RISK Significant Event: A/O X3, slow responses at times, jaundiced, Abdominal drsg D/I, sutures D/I to R)head incision, 1 assist/gait belt, walker, fatigues with activity, ambulates in room, up in chair x2, generalized edema, R)PICC line patent, saline lock x2 L)FA, IV Insulin stopped at 1130. son @ bedside. Poor PO intake, Incontinent of urine, BM x2 today. Follow up: accuchecks Standing Daily Weight
[2016-08-21 04:10] LABS: ANION GAP 12.2 (10.0-19.0); AST 90 IU/L (10-40); BLOOD UREA NITROGEN 32 mg/dL (6-24); CALCIUM 7.7 mg/dL (8.5-10.5); CHLORIDE 93 mMol/L (96-110); CO2 30 mMol/L (22-32); CREATININE 0.7 mg/dL (0.5-1.1); ESTIMATED GFR (MDRD EQUATION) > 60; POTASSIUM 4.2 mMol/L (3.7-5.1); SODIUM 131 mMol/L (135-145)
[2016-08-21 04:11] LABS: ALT 187 IU/L (12-78)
[2016-08-21 04:12] LABS: ALBUMIN 1.6 gm/dL (3.5-5.0); ALK PHOS 705 IU/L (33-138); TOTAL BILIRUBIN 7.6 mg/dL (0.0-1.5); TOTAL PROTEIN 4.6 g/dL (6.0-8.4)
[2016-08-21 04:30] LABS: HEMATOCRIT 32.8 % (33.0-46.0); HEMOGLOBIN 11.1 g/dL (10.0-15.0); MCH 28.6 pg (27.0-34.0); MCHC 33.8 gm/dL (32.0-36.5); MCV 84.5 fl (83.0-98.0); MPV 10.1 fl (9.4-12.4); RBC 3.88 M/uL (3.50-5.50); RDW-CV 16.8 % (11.9-14.6)
[2016-08-21 04:48] LABS: PLATELET COUNT 118 K/uL (150-450)
[2016-08-21 06:00] LABS: ABSOLUTE NEUTROPHIL CT (ANC) 31.7 K/uL (1.8-7.8); BANDED NEUTROPHIL # 4.6 K/uL (0.0-0.1); BANDED NEUTROPHILS % 14 %; LYMPHOCYTE % 3 %; SEGMENTED NEUTROPHIL # 27.1 K/uL (1.8-7.8); SEGMENTED NEUTROPHIL % 82 %
--- NOTE | 2016-08-21 07:12 | NUR ---
Significant Event: AAOx3, occasionally forgetful to location. Delayed response to questions. PERRLA 3mm brisk, denies N/T, blurred vision or CORLEY. Moves spontaneously and on command, equal moderate strength to upper extremities, equal weak strength to lower extremities. Systolic 100-120's, to keep SBP <150 prn med's if needed. HR 70-80's, SR, 1+ generalized edema to hands and feet. L.S. clear and diminished in lower lobes, on RA. B.S. active, last BM 08/20, occasional C/O nausea, gave Reglan last noc at 2245 with some relief, unable to pass medications d/t this, okay with Dr. Doss. Accuchecks AC/HS with carb count and 50units Levemir, on aggressive scale, gave 6 units last noc. No complaints of pain. Ambulates 1PA with walker for short distances, 2PA for longer distances. Incontinent of urine, dark renetta in color. PICC R) upper arm infusing D5 1/2 NaCl at 75mL/hr, great blood return. PIV L) forearm + L) hand both SL'd. Dressing to abdomen slight shadow drainage, intact from biopsy site. R) DIRECTOR OF SCIENCE shunt site C/D/I, open to air. Follow up: Monitor neuro status, chemo precautions, Accuchecks AC/HS with carb count.
--- NOTE | 2016-08-21 16:33 | NUR ---
Significant Event:VSS, denies pain. No c/o stomach upset today. Ate 25% of meals, states she has no appetite. Blood sugar was 53 at 0700, then 75 at 0730. Pt ate breakfast, had no s/s of hypoglycemia. Levemir and SS insulin orders changed today. Remains on ACHS, however pt is to only have SSI with meals, not at HS. Pt is to have an HS snack. Skin remains jaundice. Pt reports she has more fatigue. PICC line intact, L FA/Lhand IVSL. Lg incontinence of urine, and xlg BM. Follow up:Monitor
--- NOTE | 2016-08-22 02:49 | NUR ---
Significant Event:Patient alert/oriented x 3. Forgetful at times. Perrla. Denies N/T/pain. Follows commands. Moves all extremities spontaneously and to command. C/O lower extremities feeling weak, stated "I just need to move" a few times. Relief noted when got up to bedside commode. No bm this shift. Incontinent of urine, knows when she has urinated. ACHS accuchecks. Levemir not given this shift per MD order. Levemir decreased. MD D/C sliding scale, will continue with carb count. VSS. PICC to right upper arm running NS at 75 ml/hr. Ambulates 1-2 assist GB/walker. Follow up: Continue to monitor
--- NOTE | 2016-08-22 13:15 | NUR ---
Significant Event:Alert, oriented x 3, but forgetful about place and time. NSR. Generalized edema all over. SL'd this afternoon. O2 sats > 90 on RA. Eating at least 50% of all meals. Receiving 2 units insulin for carb count for each meal. Incontinent of urine, voids in large amounts. Incontinent of BM. 2 XL loose BM's this afternoon. Uses Bedside commode. Transfers with 2 assist, Very weak, ultra high fall risk. Uses walker and gait belt. Bruise to L) lower jaw and sutures on Right occipital head. RUQ biopsy site is approximated with luis enrique, green drainage, dressing changed with small island barrier. Dr Nieves informs patient of diagnosis of Lymphoma. Dr Yanez here to inform patient of next chemo to be on 08/30/16. Very jaundiced. Denies pain at this time. Open area to right buttock is new today, 1/2 size of a pea, moisture barrier applied with levon cares. Follow up:Sleeping medication for tonight. Carb count with meals.
--- NOTE | 2016-08-22 15:35 | NUR ---
Call from Agustina García with the hospitalist letting me know that she talked with Charlotte and her son today and she was just wanting to know a plan on Charlotte re:discharge. I let Agustina know that right now, since she was on chemo, she couldn't go to SNF and Charlotte was not able to tolerate [facility] so she would be staying on acute care. I let her know I could look into [facility] but I would need to know the plan for the chemo. Agustina tells me that she talked with Dr. Yanez and the plan is to continue the oral chemo for another 3 days and then once that is done, a week from tomorrow, she will be started with chemo infusions at the [facility]. I let Agustina know that based on this, Charlotte would be here until she either gained strength to go to [facility] or go home with family support and C. She voiced understanding to this. Will continue to follow and assist.
[2016-08-23 05:14] LABS: ALT 170 IU/L (12-78); ANION GAP 12.9 (10.0-19.0); AST 58 IU/L (10-40); BLOOD UREA NITROGEN 17 mg/dL (6-24); CALCIUM 7.7 mg/dL (8.5-10.5); CHLORIDE 95 mMol/L (96-110); CO2 27 mMol/L (22-32); CREATININE 0.6 mg/dL (0.5-1.1); ESTIMATED GFR (MDRD EQUATION) > 60; MAGNESIUM 1.9 mg/dL (1.3-2.6); POTASSIUM 3.9 mMol/L (3.7-5.1); SODIUM 131 mMol/L (135-145)
[2016-08-23 05:20] LABS: ALBUMIN 1.8 gm/dL (3.5-5.0); ALK PHOS 663 IU/L (33-138); TOTAL BILIRUBIN 5.1 mg/dL (0.0-1.5); TOTAL PROTEIN 4.8 g/dL (6.0-8.4)
[2016-08-23 05:34] LABS: HEMATOCRIT 29.8 % (33.0-46.0); HEMOGLOBIN 9.8 g/dL (10.0-15.0); MCH 28.5 pg (27.0-34.0); MCHC 32.9 gm/dL (32.0-36.5); MCV 86.6 fl (83.0-98.0); MPV 10.4 fl (9.4-12.4); RBC 3.44 M/uL (3.50-5.50); RDW-CV 16.9 % (11.9-14.6)
[2016-08-23 05:39] LABS: PLATELET COUNT 44 K/uL (150-450); WBC 44.4 K/uL (4.0-11.0)
--- NOTE | 2016-08-23 06:00 | NUR ---
Significant Event: Patient alert/oriented x 3. Forgetful at times. Perrla. Denies N/T/pain. Follows commands. Moves all extremities spontaneously and to command. Generalized weakness. Weak with transfers. Transfers 1-2 assist No bm this shift. Incontinent of urine, knows when she has urinated. ACHS accuchecks with carb count. HTN at times. PICC to right upper arm intact. PIV to left FA SL. B.S. active. No bm this shift. Next chemo on the . Follow up: [facility]ble to transfer to [facility]. Bone marrow bx result pending.
[2016-08-23 06:18] LABS: ABSOLUTE NEUTROPHIL CT (ANC) 42.2 K/uL (1.8-7.8); BANDED NEUTROPHIL # 8.4 K/uL (0.0-0.1); BANDED NEUTROPHILS % 19 %; LYMPHOCYTE # 0.9 K/uL (0.8-4.0); LYMPHOCYTE % 2 %; MONOCYTE # 0.9 K/uL (0.0-1.0); SEGMENTED NEUTROPHIL # 33.7 K/uL (1.8-7.8); SEGMENTED NEUTROPHIL % 76 %
--- NOTE | 2016-08-23 09:22 | NUR ---
A - NUTRITION F/U. PT A/O X 3. WEAK. NEW O/A TO R) BUTTOCKS. NA+ 131, GLU 154, BUN/DETENTION WORKER 17/0.6, ALB 1.8, WBC 44.4. EST NEEDS: [id number] KCALS, 84-101 GM PROTEIN. DIET: REGULAR W/ ENSURE TID AND ENSURE PUDDING BID. INTAKE 25-75%. D - AT RISK W/ INADEQUATE ORAL INTAKE AT TIMES R/T DECREASED APPETITE AEB INTAKE RECORD. I - GOAL: 50-75% INTAKE BY DISMISSAL. M/E - ENCOURAGE SUPPLEMENT INTAKE. WILL F/U IN 3-5 DAYS.
--- NOTE | 2016-08-23 11:24 | NUR ---
Attempted to stop in and talk with Charlotte and her son, but she was sleeping and son asked that I just wait and come back at a later time to visit with them. I left my name on the board for future reference. Will continue to follow and assist.
--- NOTE | 2016-08-23 17:17 | NUR ---
D: pt a/o x3. Jaundiced. Transfered from NTU at 1715. up with 1 assist. PICC to right arm.
--- NOTE | 2016-08-23 19:05 | NUR ---
Significant Event: Patient A/O x3. Forgetful at times. VS stable on RA. 1 assist transfer with gaitbelt and walker. No complains of pain this shift. Patient denies numbness or tingling to extremities. Can move all extremities spontaneously and on command. Patient up in chair this shift. PT/OT services provided this shift. Patient has decreased appetite this shift. On ACHS accuchecks with no sliding scale only CARB COUNT. NO insulin given this shift. Sutures to R) side of head. Small BM this shift. Patient continues to be jaundice. Patient pleasant and cooperative with cares. Patient transferred to [facility] at 1715. Follow up:
--- NOTE | 2016-08-24 03:14 | NUR ---
SIGNIFICANT EVENT: Patient alert & oriented, forgetful at times. VSS on RA. Diabetic diet, poor appetite. ACHS accucheck - no SS, carb count only at meals, levemir at HS. 1 to 2PA. L) FA PIV and R) upper arm PICC are SL. Skin and eyes jaundiced. Important to note: give Benadryl at HS for sleep - didn't sleep well last night d/t pt didn't request Benadryl at HS and this is not a scheduled med. Monitor coccyx/sacrum for redness/open areas. Pleasant and cooperative with cares.
[2016-08-24 05:49] LABS: HEMOGLOBIN 10.1 g/dL (10.0-15.0); MCH 28.4 pg (27.0-34.0); MCHC 32.6 gm/dL (32.0-36.5); MCV 87.1 fl (83.0-98.0); MPV 10.6 fl (9.4-12.4); RBC 3.56 M/uL (3.50-5.50); RDW-CV 16.8 % (11.9-14.6)
[2016-08-24 05:50] LABS: PLATELET COUNT 27 K/uL (150-450)
[2016-08-24 06:26] LABS: ABSOLUTE NEUTROPHIL CT (ANC) 45.8 K/uL (1.8-7.8); BANDED NEUTROPHIL # 2.6 K/uL (0.0-0.1); BANDED NEUTROPHILS % 5 %; LYMPHOCYTE # 1.6 K/uL (0.8-4.0); LYMPHOCYTE % 3 %; MONOCYTE # 3.6 K/uL (0.0-1.0); SEGMENTED NEUTROPHIL # 43.2 K/uL (1.8-7.8); SEGMENTED NEUTROPHIL % 83 %
--- NOTE | 2016-08-24 11:57 | NUR ---
Talked with Agustina Inman APRN about barriers to discharge, chemo plan. Unless pt strong enough to do 3 hours therapy on inpt rehab or strong enough to go home or can go home with her children, will not be able to go to SNF for Medicare skilled stay as facilities won't accept due to being responsible for cost of chemo. She said son today had questions for her about discharge and so I went and visited with pt and with 2 sons (oldest and youngest). Explained the above to them, they said not able to go home with them and plan for chemo is starting a new chemo next week, won't know further plan until sees how she tolerates that. Will see how that goes and discuss discharge planning again further. Will follow.
--- NOTE | 2016-08-24 17:34 | NUR ---
Very forgetful. Had xlarge incontinent BM and void this a.m. but didn't remember this afternoon. Eating small amounts of food. ADA diet w/CC and mild SSI. Incontinent several times today. Up w/1-2 assist, GB, walker to chair several times. C/O abdominal bloating (needing to belch). Order for Digex received. Administer when available. Refused supper. PICC to SARABJIT w/GBR.
--- NOTE | 2016-08-25 04:42 | NUR ---
Significant Event: PATIENT IS ALERT AND ORIENTATED X 4. AMBULATES WITH WALKER GB AND ONE ASSIST. INCONTINENT OF URINE AND BLADDER. PICC TO SARABJIT. PATIENT IS ACHS ACCUCHECK. ADA DIET. PATIENT WAS UP IN CHAIR X2 TONIGHT HAD COMPLAINTS OF NAUSEA ZOFRAN WAS GIVEN WITH RELIEF. NO COMPLAINTS OF PAIN. Follow up:
[2016-08-25 07:45] LABS: HEMATOCRIT 29.5 % (33.0-46.0); HEMOGLOBIN 9.7 g/dL (10.0-15.0); MCH 28.7 pg (27.0-34.0); MCHC 32.9 gm/dL (32.0-36.5); MCV 87.3 fl (83.0-98.0); MPV 11.4 fl (9.4-12.4); RBC 3.38 M/uL (3.50-5.50)
[2016-08-25 07:57] LABS: ALT 124 IU/L (12-78); ANION GAP 11.3 (10.0-19.0); AST 39 IU/L (10-40); BLOOD UREA NITROGEN 14 mg/dL (6-24); CALCIUM 7.9 mg/dL (8.5-10.5); CHLORIDE 96 mMol/L (96-110); CO2 28 mMol/L (22-32); CREATININE 0.6 mg/dL (0.5-1.1); ESTIMATED GFR (MDRD EQUATION) > 60; POTASSIUM 4.3 mMol/L (3.7-5.1); SODIUM 131 mMol/L (135-145); TOTAL BILIRUBIN 4.3 mg/dL (0.0-1.5); TOTAL PROTEIN 5.3 g/dL (6.0-8.4)
[2016-08-25 08:00] LABS: ALBUMIN 1.9 gm/dL (3.5-5.0); ALK PHOS 734 IU/L (33-138); PLATELET COUNT 30 K/uL (150-450); WBC 59.6 K/uL (4.0-11.0)
[2016-08-25 08:36] LABS: ABSOLUTE NEUTROPHIL CT (ANC) 54.2 K/uL (1.8-7.8); BANDED NEUTROPHIL # 16.7 K/uL (0.0-0.1); BANDED NEUTROPHILS % 28 %; LYMPHOCYTE # 3.6 K/uL (0.8-4.0); LYMPHOCYTE % 6 %; MONOCYTE # 1.8 K/uL (0.0-1.0); SEGMENTED NEUTROPHIL # 37.6 K/uL (1.8-7.8); SEGMENTED NEUTROPHIL % 63 %
--- NOTE | 2016-08-25 17:21 | NUR ---
Significant event: Patient is alert and oriented x3, is forgetful at times. VSS, room air. Has not ate well today, has had nausea and vomited x2. Zofran given. Had 2 units sliding scale at lunch. Is ACHS, mild scale. Has a PICC, right upper arm. Is incontinent of urine. Has been 1 assist today with gait belt and walker. No complaints of pain. Cooperative with cares.
[2016-08-26 05:08] LABS: HEMATOCRIT 28.9 % (33.0-46.0); HEMOGLOBIN 9.5 g/dL (10.0-15.0); MCH 28.9 pg (27.0-34.0); MCHC 32.9 gm/dL (32.0-36.5); MCV 87.8 fl (83.0-98.0); MPV 11.3 fl (9.4-12.4); RBC 3.29 M/uL (3.50-5.50); RDW-CV 17.4 % (11.9-14.6)
[2016-08-26 05:11] LABS: PLATELET COUNT 53 K/uL (150-450); WBC 60.6 K/uL (4.0-11.0)
[2016-08-26 05:49] LABS: LYMPHOCYTE % 5 %; MONOCYTE # 3.6 K/uL (0.0-1.0)
[2016-08-26 05:50] LABS: ABSOLUTE NEUTROPHIL CT (ANC) 53.3 K/uL (1.8-7.8); BANDED NEUTROPHIL # 5.5 K/uL (0.0-0.1); BANDED NEUTROPHILS % 9 %; SEGMENTED NEUTROPHIL # 47.9 K/uL (1.8-7.8); SEGMENTED NEUTROPHIL % 79 %
--- NOTE | 2016-08-26 07:00 | NUR ---
Significant Event:Patient very weak. Up to bathroom with 2 assist, walker and gait belt, voided but is incontinent of urine also. Complains of not sleeping well and benadryl plus seroquel given at HS which helped with sleep. Uneventful night. Follow up:Continue to monitor.
--- NOTE | 2016-08-26 15:19 | NUR ---
Significant Event:Is A/O but forgetful.PICC in Rt.upper arm.Is jaundice & weak.Not eating very well."No appetite".No c/o pain.Has been amb with walker & 1 assist.Is incont.of urine & stool,but also had 2 stools when she was on the toilet.Need UA if able & scan after to see if any residual. Follow up:
[2016-08-26 20:07] LABS: BILIRUBIN URINE NEGATIVE (NEGATIVE); BLOOD URINE 25 /UL (NEGATIVE); COLOR URINE YELLOW (YELLOW); GLUCOSE URINE 100 mg/dL (NEGATIVE); KETONE URINE NEGATIVE (NEGATIVE); LEUKOCYTES URINE 25 /UL (NEGATIVE); NITRITE URINE NEGATIVE (NEGATIVE); PH URINE 6.5 (4.0-8.0); PROTEIN URINE NEGATIVE (NEGATIVE); SPEC GRAVITY URINE 1.015 (1.003-1.035); TURBIDITY URINE CLEAR (CLEAR); UROBILINOGEN URINE 1 mg/dL (NORMAL)
[2016-08-26 20:25] LABS: BACTERIA URINE FEW (NEGATIVE); EPITHELIAL URINE 0-2 #/HPF (NEGATIVE); RBC URINE 0-2 #/HPF (NEGATIVE)
--- NOTE | 2016-08-27 04:35 | NUR ---
Significant Event:Patient seems pretty letharic at times. Moves very slow. Up to bathroom at start of shift and we were able to get a UA. Post residula void only showed 13ml of urine. Up to chair part of the shift. Denies pain or SOB. Zofran given at bedtime. Cooperative with cares even though she would rather not. Follow up: Continue to monitor and assist.
[2016-08-27 05:15] LABS: HEMATOCRIT 27.8 % (33.0-46.0); MCH 28.6 pg (27.0-34.0); MCHC 32.4 gm/dL (32.0-36.5); MCV 88.3 fl (83.0-98.0); MPV 10.8 fl (9.4-12.4); RBC 3.15 M/uL (3.50-5.50); RDW-CV 17.5 % (11.9-14.6)
[2016-08-27 05:17] LABS: PLATELET COUNT 82 K/uL (150-450); WBC 18.1 K/uL (4.0-11.0)
[2016-08-27 06:16] LABS: ABSOLUTE NEUTROPHIL CT (ANC) 14.7 K/uL (1.8-7.8); BANDED NEUTROPHIL # 4.2 K/uL (0.0-0.1); BANDED NEUTROPHILS % 23 %; LYMPHOCYTE # 0.9 K/uL (0.8-4.0); LYMPHOCYTE % 5 %; MONOCYTE # 1.3 K/uL (0.0-1.0); SEGMENTED NEUTROPHIL # 10.5 K/uL (1.8-7.8); SEGMENTED NEUTROPHIL % 58 %
--- NOTE | 2016-08-27 15:10 | NUR ---
Significant Event: Patient slow to start this a.m. but this afternoon is asking to get up in the chair. Denies pain. Ate a piece of peanut butter toast this a.m. for breakfast and had [employer] for lunch and was able to eat 2 of the pieces of fish. In good spirits this afternoon. Follow up: Continue to monitor.
--- NOTE | 2016-08-28 02:50 | NUR ---
SIGNIFICANT EVENT: Patient alert, forgetful at times - flat affect. Alarms at all times. Did get up to chair for about 1 hour this shift d/t complaints of gas pains/nausea. Zofran given x1 at approx 2300. Benadryl given as scheduled but pt states she usually needs to 2 in order to rest - restless throughout shift. HS BG of 202 treated with 2 units of Novolog, 25 of Levemir given as scheduled. R) PICC is a single lumen - SL, good blood return - dressing shows some old blood but is intact. 2PA, gaitbelt and walker - weak. Incontinent of urine x3, Lg. Cooperative with cares.
--- NOTE | 2016-08-28 14:56 | NUR ---
Patient is alert and oriented but has periods of confusion. VSS, on room air. SBA to 1 assist with walker and gait belt. Alarms on at all times. Did try to get up out of the chair by herself to go back to bed. She has an incision on the right/back side of her head, sutures removed today. She also has an incision on the R) middle of her abdomen that has luis enrique removed today. She can be incontinent of urine and not be aware of it. ACHS accuchecks with no coverage for lunch or breakfast. Refused breakfast but had 75% of her [employer] for lunch. PICC to the R) upper arm.
--- NOTE | 2016-08-28 17:17 | NUR ---
A-NUTRITION F/U C/0 GAS PAINS/NAUSEA AT TIMES. YASMANY REMOVED FROM ABD. INCISION LABS: NA 131, K+ 4.3, GLU 151, BUN 14, APPRAISER BOATS AND MARINE 0.6, ALB 1.9 MEDS: GAS-X, LEVEMIR DIET RX: REGULAR. ENSURE ENLIVE TID AND ENSURE PUDDING BID AT L/D. PO INTAKE REFUSALS-100%. PO HAS IMPROVED OVER THE LAST SEVERAL DAYS; ONLY REFUSAL AND SEVERAL MEALS OF 75-100%. EST NUTR NEEDS: 5535-6088 KCALS AND 84-101 GM PROTEIN D-AT NUTRITION RISK W/INADEQUATE ORAL INTAKE R/T POOR APPETITE, ALTERED GI FXN AEB INTAKE RECORDS, C/O N/V, GAS PAINS I-CONTINUE W/NUTRITION SUPPLEMENTS M/E-GOAL: PO INTAKE >/=50% BY NEXT F/U 1)F/U PO INTAKE, SUPPLEMENT, AND POC IN 3-5 DAYS 2)ASSIST NEEDED
[2016-08-29 04:44] LABS: ALBUMIN 2.1 gm/dL (3.5-5.0); ALK PHOS 544 IU/L (33-138); ALT 88 IU/L (12-78); ANION GAP 13.1 (10.0-19.0); AST 44 IU/L (10-40); BLOOD UREA NITROGEN 15 mg/dL (6-24); CALCIUM 8.2 mg/dL (8.5-10.5); CHLORIDE 99 mMol/L (96-110); CO2 26 mMol/L (22-32); CREATININE 0.7 mg/dL (0.5-1.1); ESTIMATED GFR (MDRD EQUATION) > 60; POTASSIUM 4.1 mMol/L (3.7-5.1); SODIUM 134 mMol/L (135-145); TOTAL BILIRUBIN 3.1 mg/dL (0.0-1.5); TOTAL PROTEIN 5.6 g/dL (6.0-8.4)
[2016-08-29 04:50] LABS: HEMATOCRIT 28.8 % (33.0-46.0); HEMOGLOBIN 9.6 g/dL (10.0-15.0); MCH 29.1 pg (27.0-34.0); MCHC 33.3 gm/dL (32.0-36.5); MCV 87.3 fl (83.0-98.0); MPV 10.8 fl (9.4-12.4); RDW-CV 17.4 % (11.9-14.6); WBC 6.2 K/uL (4.0-11.0)
[2016-08-29 04:59] LABS: PLATELET COUNT 189 K/uL (150-450)
--- NOTE | 2016-08-29 05:21 | NUR ---
Significant Event: Pt A&Ox3. Is forgetful at times. Very flat affect. Has slow speech and take awhile to respond. You also have to prompt her. She is post-op from BAG TESTER shunt placement. Found pt to have cancer with mets to liver. Pt is to restart chemo starting Saturday. VS remain stable and on room. No complaints of pain. ACHS accuchecks, scheduled levemir and SSI mild scale. ADA diet. Is incontinent at times. Pt is up with SBA, gaitbelt, and FWW. Cranial sutures were removed yesterday (CDI) and abdominal luis enrique also removed (CDI). Pt has SARABJIT SL PICC, SL and draws back beautifully. Follow up:
[2016-08-29 05:36] LABS: ABSOLUTE NEUTROPHIL CT (ANC) 3.6 K/uL (1.8-7.8); BANDED NEUTROPHIL # 1.5 K/uL (0.0-0.1); BANDED NEUTROPHILS % 24 %; LYMPHOCYTE # 0.7 K/uL (0.8-4.0); LYMPHOCYTE % 11 %; MONOCYTE # 0.6 K/uL (0.0-1.0); SEGMENTED NEUTROPHIL # 2.1 K/uL (1.8-7.8); SEGMENTED NEUTROPHIL % 34 %
--- NOTE | 2016-08-29 12:30 | NUR ---
RECEIVED REFERRAL TO [facility] FOR PATIENT TO GO TO TCU. I SPOKE TO YINA ON TCU SHE DOES NOT ANTICIPATE THAT THEY WILL BE ABLE TO ACCEPT PATIENT DUE TO HER GETTING CHEMO. SHE WILL REVIEW THIS AND GET BACK TO ME.
--- NOTE | 2016-08-29 16:56 | NUR ---
Significant event: Pt. is alert and oriented, no forgetfulness or confusion this shift. VSS, on RA. SBA with ambulation. Walked several times today in room and gonsales. Up to chair TID. Alarms at all times. Incision to back of head and on abdomen are healing, open to air. Not incontinent this shift. Ambulates to bathroom to void. ACHS accuchecks, 2 units given at noon and 1800. Appetite improved. Ate toast and PB and magic cup for breakfast. Culvers for lunch and ice cream at 1600. Sarcastic and laughing this shift, affect improved. PICC to [facility] has good blood return. Follow up: Plan for chemo tomorrow morning at cancer center, will come picker / packer at 9:30-10:00 am.
--- NOTE | 2016-08-30 04:46 | NUR ---
Significant Event: PATIENT IS ALERT AND ORIENTED X4. AMBULATES WITH GAIT BELT WALKER AND ONE ASSIST. VS WNL. ON RA. ACHS NO SLIDING SCALE INSULIN GIVEN. RECIEVED PRN BENADRYL AT HS AND ZOFRAN X2. ADA DIET, EATING WELL. HAS CHEMO AT [facility] IN AM. WILL TWIST TESTER FOR CHEMO BETWEEN 0930 AND 1000. SHE IS NERVOUS ABOUT HAVING CHEMO. PICC TO UPPER R) CHEST SL. CRANIAL SUTURES REMOVED SITE HEALING, ABDOMINAL YASMANY ALSO REMOVED. Follow up:
[2016-08-30 07:20] LABS: ALBUMIN 2.1 gm/dL (3.5-5.0); ALT 74 IU/L (12-78); ANION GAP 13.3 (10.0-19.0); AST 40 IU/L (10-40); BLOOD UREA NITROGEN 15 mg/dL (6-24); CALCIUM 7.9 mg/dL (8.5-10.5); CHLORIDE 98 mMol/L (96-110); CO2 28 mMol/L (22-32); CREATININE 0.8 mg/dL (0.5-1.1); ESTIMATED GFR (MDRD EQUATION) > 60; POTASSIUM 4.3 mMol/L (3.7-5.1); SODIUM 135 mMol/L (135-145); TOTAL BILIRUBIN 3.1 mg/dL (0.0-1.5); TOTAL PROTEIN 5.6 g/dL (6.0-8.4)
[2016-08-30 07:24] LABS: ALK PHOS 500 IU/L (33-138)
--- NOTE | 2016-08-30 14:44 | NUR ---
Speech Tx Note: Unable to see pt for cognitive-linguistic Tx due to pt in chemotherapy today. This service will change POC to read speech [place] PRN due to pt's chemotherapy schedule. Will discuss with pt and family. Ying Meneses M.A. OSKAR-TELECOMMUNICATION EQUIPMENT REPAIRER
--- NOTE | 2016-08-30 16:56 | NUR ---
Significant Event:Is A/O.Weak.Very jaundice.Was at cancer center half of the day.Has been pretty comfortable.Hungry & eating what her son brought in.Up with walker & 1 assist. Follow up:
[2016-08-31 04:37] LABS: BASOPHIL % 0.3 %; EOSINOPHIL % 0.1 %; HEMATOCRIT 27.7 % (33.0-46.0); HEMOGLOBIN 9.1 g/dL (10.0-15.0); IMMATURE GRANULOCYTE # 0.4 K/uL (0.0-0.3); IMMATURE GRANULOCYTE % 4.9 %; LYMPHOCYTE # 0.6 K/uL (0.8-4.0); LYMPHOCYTE % 7.8 %; MCH 29.4 pg (27.0-34.0); MCHC 32.9 gm/dL (32.0-36.5); MCV 89.4 fl (83.0-98.0); MONOCYTE % 13.2 %; MPV 10.8 fl (9.4-12.4); NEUTROPHIL # (ANC) 5.8 K/uL (1.8-7.8); NEUTROPHIL % 73.7 %; NRBC % 0 /100WBC (0-0.00); RDW-CV 17.7 % (11.9-14.6); WBC 7.8 K/uL (4.0-11.0)
[2016-08-31 04:42] LABS: PLATELET COUNT 312 K/uL (150-450)
[2016-08-31 04:52] LABS: ANION GAP 17.3 (10.0-19.0); CREATININE 1.1 mg/dL (0.5-1.1); PHOSPHORUS 2.7 mg/dL (2.5-4.9); POTASSIUM 4.3 mMol/L (3.7-5.1)
--- NOTE | 2016-08-31 05:02 | NUR ---
Significant Event: HAD CHEMO YESTERDAY AM. NO ILL SIDE EFFECTS VOICED. NO COMPLAINTS OF NAUSEA OR UPSET STOMACH. ALERT AND ORIENTATED X3 AMBULATES WITH STAND BY ASSIST. UP TO THE BATHROOM X3 AND WALKED IN HALLS X2 THIS SHIFT. PICC TO UPPER RIGHT CHEST. ADA DIET. GAVE 2 UNITS OF NOVALOG THIS SHIFT. PERCOCET LAST GIVEN AT 0445. Follow up:
--- NOTE | 2016-08-31 13:22 | NUR ---
I have examined the student charting and find it acceptable. DEBBIE Sylvester
--- NOTE | 2016-08-31 14:22 | NUR ---
A-NUTRITION F/U HAD CHEMO YESTERDAY. NO C/O NAUSEA OR UPSET STOMACH LABS: NA 138, K+ 4.3, GLU 254, BUN 25, INSPECTOR GOVERNMENT PROPERTY 1.1, ALB 2.0 MEDS: COMPAZINE, NOVOLOG (MOD SS), LEVEMIR DIET RX: REGULAR; PO INTAKE 0-100%. ENSURE ENLIVE TID AND ENSURE PUDDING BID. FAMILY BROUGHT FOOD IN FOR PT YESTERDAY. AVG POINTAKE 46% EST NUTR NEEDS: 7559-8806 KCALS AND 84-101 GM PROTEIN D-AT NUTRITION RISK W/INCREASED NUTRIENT NEEDS R/T HEALING, CATABOLIC DZ AEB SURGERY, CA DX. I-CONTINUE W/CURRENT SUPPLEMENTS M/E-GOAL: PO INTAKE >/=50% BY NEXT F/U 1)F/U PO INTAKE, SUPPLEMENTS, AND POC IN 3-5 DAYS 2)ASSIST NEEDED
--- NOTE | 2016-08-31 14:28 | NUR ---
Significant Event: Pt denies pain when asked. up with 2 assist, touch toe wt bearing to left leg. Dressings x3 to left leg d/i, changes. Disoriented at times. Legally blind. Had a small emesis. Phenergan PO given. Having bone scan and CT today. Tele called x1, heart rate sinus rythym 140's when moving, heart rate comes back down when resting. Bed alarm on for safety. Had student nurse this am. Good CSM to left leg. Follow up:
--- NOTE | 2016-08-31 16:00 | NUR ---
SPOKE TO PATIENT REGRDING DISCHARGE PLANS AND GOALS. PATIENT TELLS ME THAT SHE LIVES ALONE IN OWN HOME AND THAT SHE HAS SONS THAT LIVE NEAR BY. I EXPLAINED TO HER THAT GOING TO SNF NOT OPTION DUE TO SHE IS GETTING CHEMO. I PRESENTED TO HER THE OPTION OF HHC AND SHE WANTS TO TALK TO HER SONS ABOUT THIS. SHE WILL GET BACK TO ME TO WHETHER OR NOT SHE DECIDES TO HAVE HHC.
--- NOTE | 2016-08-31 16:00 | NUR ---
SPOKE TO PATIENT SHE TELLS ME SHE FEELS TIRED TODAY "AFTER HAVING CHEMO YESERDAY". SHE HAS SONS THAT LIVE NEAR BY. I PRESENTED TO HER THE OPTION OF C SINCE A SNF IS NOT ABLE TO ACCEPT HER DUE TO HER GETTING CHEMO. MICHAEL IS GOING TO TALK TO HER SONS ABOUT THIS AND WILL LET ME KNOW IF SHE DECIDES TO GET CHEMO.
--- NOTE | 2016-09-01 04:16 | NUR ---
Significant Event: Patient alert and oriented X4. Up with one person assist, walker and gait belt. Walked in halls last night. Sore to buttocks, reposiitoned/aloe vesta frequently. PICC to R) arm. NS running at 125ml. Percocet given at bedtime. Jaundice noted. Insicion to abdomen. Had chemo on . Hazardous drugs precautions through today yet. Lives at home alone, son lives close, possibly HH to check up on when dismissed. Follow up: Monitor pain
[2016-09-01 06:14] LABS: ANION GAP 11.1 (10.0-19.0); BLOOD UREA NITROGEN 22 mg/dL (6-24); CALCIUM 7.7 mg/dL (8.5-10.5); CHLORIDE 106 mMol/L (96-110); CO2 25 mMol/L (22-32); CREATININE 0.6 mg/dL (0.5-1.1); POTASSIUM 4.1 mMol/L (3.7-5.1); SODIUM 138 mMol/L (135-145)
[2016-09-01 06:17] LABS: ESTIMATED GFR (MDRD EQUATION) > 60
--- NOTE | 2016-09-01 16:09 | NUR ---
PT is alert and oriented x3. Up to chair with meals. Picc to right arm patent. Denies pain or discomfort. VSS. Son here to visit and brought lunch for her. Walked in halls with physical therapy.
--- NOTE | 2016-09-02 06:59 | NUR ---
Significant Event: Patient up to the chair and to the bathroom several times throughout the night. Percocet 1 tab given at HS for generalized discomfort. Has a small loose stool at the end of the shift. Alert and orientated but does get confused at times. PICC line to right upper arm. Follow up: Continue to monitor.
--- NOTE | 2016-09-02 16:26 | NUR ---
Significant Event: Patient is alert and oriented x3. Forgetful at times. Moving well with 1PA-SBA. VSS and on RA. Tolerating a regular diet. PICC line to the right arm, fluids infusing. Dressing changed to the PICC line site. Dated. Accuchecks AC/HS- coverage given with every check thus far. Incontinent at times. Has had 2-3 small BM's today. Semi-formed. Denies pain or nausea. Jaundiced. Chemo every . Small sized open sore on the right buttock cheek- aloe being applied. Cooperative with cares.
--- NOTE | 2016-09-03 02:47 | NUR ---
Significant Event: Uneventful night, patient ambulated in the hallway quite a ways and did well. 1 tab of percocet at HS for generalized discomfort. Up to bathroom x 2 and to the chair in the evening. Incontinent x2 but also voided when up to the bathroom. Has a PICC to right upper arm. More alert and brighter this shift. Follow up: Continue to monitor.
--- NOTE | 2016-09-03 17:36 | NUR ---
Significant Event: Patient alert and oriented but forgetful at times. Up to the bathroom with assist to void and up in the recliner for her meals. Ambulated in the hallway x 2 with PT. Denies discomfort. New order to dc IV fluids, Allopurinol and Rifaximin. PICC line to her R) upper arm that flushes well with good blood return. Accuchecks have been 197 and 131 with no sliding scale insulin needed. Follow up: Ambulate this evening.
[2016-09-04 06:31] LABS: TOTAL BILIRUBIN 1.9 mg/dL (0.0-1.5); TOTAL PROTEIN 4.7 g/dL (6.0-8.4)
--- NOTE | 2016-09-04 08:35 | NUR ---
Significant Event: Patient is alert and oriented but forgetful at times. Up to bathroom with walker/gait belt. Has had 2 BMs. Ambulated x 1 for nurse. Denies any pain. PICC line to upper right arm. Flushes well with good blood return. Accucheck of 351 HS. Gave 8 units mild scale. Lopressor held due to SBP of 110. Follow up: Continue per plan of care. Ambulate.
--- NOTE | 2016-09-04 10:40 | NUR ---
' OFFICE CALLED FOLLOW UP APPOINTMENT FOR 09/20/16 AT 0850 AT [facility] FOR [facility].
--- NOTE | 2016-09-04 12:16 | NUR ---
PT MOVED TO NO RISK W/ INTAKE IMPROVED TO 75-100%. WILL CONT ENSURE BID TO MAINTAIN LEAN MASS AND ASSIST NEEDED.
--- NOTE | 2016-09-04 13:45 | NUR ---
Introduced self/role to patient. Asked her if she was interested in HHC when she goes home? Looks like she will be able to go home tomorrow. She stated yes. She had no preference on which company provided the HHC. Face to face is on the chart, Luciano Arreaga aware. [phone] Spoke to Nicole at [facility] #[phone] and faxed them referral #[phone].
--- NOTE | 2016-09-04 16:36 | NUR ---
Significant Event:Is A/O.Has PICC in Rt.upper arm.Is jaundice.Is up with walker & 1 assist,does well.Pretty comfortable.Maybe home tomorrow with home health. Follow up:
--- NOTE | 2016-09-05 04:42 | NUR ---
Significant Event: Patient is A&O x 3 but forgetful. Up to bathroom with walker and gaitbelt. Was incontent x 2. Denies having any pain. PICC line to upper right arm SL. ACHS Accucheck. Accucheck of 171 HS, no Novolog given. Lopressor held for SBP. Follow up: Discharge today. Home with home health.
--- NOTE | 2016-09-05 11:00 | NUR ---
RECEIVED REFERRAL TO [facility]. I SPOKE TO ARTHUR WITH [facility] THIS HAD BEEN ARRANGED YESTERDAY. I UPDATED HER THAT PATIENT WILL BE GOING HOME TODAY. SHE REPORTS THAT THEY WILL PLAN ON SEEING PATIENT TOMORROW. INFO FAXED TO HER. I UPDATED PATIENT THAT [facility] WILL CONTACT HER TOMORROW AND SHE IS IN AGREEMENT TO THIS PLAN.
--- NOTE | 2016-09-05 12:35 | NUR ---
[facility] note: 1100 Assisted patient and son in completing the Diabetes Survival Skills assessment form and addressed and educated on all topics. A completed copy is provided to patient. Orders on chart for insulin clarified for home instructions with Levemir 30 units and use of sliding scale that she used prior to admission. The Novolog sliding scale is for 2 units for every 50 mg/dl over 200. Patient and son state understanding, and patient states that she has this scale printed out hanging on her frig at home. Reveiwed action, site rotation and timing of insulin, levemir and novolog. Home Health will be follow her at home. Son is concerned because he states patient is forgetful, but he only lives 8 blocks from her so will be checking in on her regularly. Agrees to follow up with Dr. Peña and Jackie Hartman RN, CDE at [facility] for on-going diabetes care/ management. Consult sent for RD to review meal plan with patient prior to dismissal today also. Both patient and son state understanding education provided. Script written on chart for Flex Pen for insulin, levemir and novolog BD pen needle samples provided and script written. Use True Metrix meter at home and a written order for blood glucose strips to test blood sugar 4 times per day is written. Patient to call if further questions or concerns.
[2016-09-05] MEDS ORDERED: ENULOSE UD L30 ML/EA PO (13:24)
[2016-09-05] MEDS ORDERED: MIRALAX17 GM PO (13:25)
[2016-09-05] MEDS ORDERED: K-PHOS NEUTRAL)1 TAB PO (13:25)
[2016-09-05] MEDS ORDERED: COMPAZINE10 MG PO (13:26)
[2016-09-05] MEDS ORDERED: ALDACTONE25 MG PO (13:27)
[2016-09-05] MEDS ORDERED: BACTRIM DS1 TAB PO (13:27)
[2016-09-05] MEDS ORDERED: PERCOCET 5-3251 EACH PO (13:29)
[2016-09-05] MEDS ORDERED: GRANIX SUB-Q (13:29)
--- NOTE | 2016-09-05 13:50 | NUR ---
D: Orders received for the patient to be discharged today with Home Health. I: Dismissal instructions were prepared and reviewed with the patient virtually. The following information was discussed including Krachuy teaching sheets provided: Lactulose, miralax, Potassium-Phosphate, Prochlorperazine maleate, Aldactone, Sulfamethoxazole, Trimethoprim, Tbo-filrastim sodium, Percocet, Discharge instructions-caring for your peripherally inserted central catheter (PICC), flushing your PICC line at home, Discharge instructions for changing your PICC line dressing, Preventing Falls at home, and Preventing falls-make your health a priority. Reviewed follow up appointments and all new prescriptions. R: The patient and her family both verbalized understanding of the dismissal education at the time of teaching with no further questions. P: The above information was shared with the primary nurse and the charge nurse that the patient's dismissal education was completed. The patient is ready to be tranported to the front door via wheel chair by nursing staff when ready.
== END 2016-09-05 14:44 | disposition home health service (06) | DRG 820 ==
LOC: GPCU 23:56 → GNTU 08-04 01:54 → GPCU 08-04 01:54 → GNTU 08-13 15:02 → GMSU 08-23 16:57
PROVIDERS: Family Medicine; Internal Medicine; Internal Medicine Adolescent Medicine; Internal Medicine Hematology & Oncology; Neurological Surgery; Nurse Practitioner Family; Physician Assistant; Student in an Organized Health Care Education/Training Program; ADMIT Hospitalist
PROC: 0FB13ZX Excision of Right Lobe Liver, Percutaneous Approach, Diagnostic (ICD-10-PCS; 2016-08-06)
PROC: B01B1ZZ Fluoroscopy of Spinal Cord using Low Osmolar Contrast (ICD-10-PCS; 2016-08-08)
PROC: 009U3ZX Drainage of Spinal Canal, Percutaneous Approach, Diagnostic (ICD-10-PCS; 2016-08-08)
PROC: 00160J6 Bypass Cerebral Ventricle to Peritoneal Cavity with Synthetic Substitute, Open Approach (ICD-10-PCS; principal; 2016-08-13)
PROC: 8E09XBZ Computer Assisted Procedure of Head and Neck Region (ICD-10-PCS; principal; 2016-08-13)
PROC: 3E03305 Introduction of Other Antineoplastic into Peripheral Vein, Percutaneous Approach (ICD-10-PCS; 2016-08-16)
PROC: 07DR3ZX Extraction of Iliac Bone Marrow, Percutaneous Approach, Diagnostic (ICD-10-PCS; 2016-08-17)
PROC: 02HV33Z Insertion of Infusion Device into Superior Vena Cava, Percutaneous Approach (ICD-10-PCS; 2016-08-17)
DX: C83.39 Diffuse large B-cell lymphoma, extranodal and solid organ sites (principal); E88.3 Tumor lysis syndrome; G91.0 Communicating hydrocephalus; E44.0 Moderate protein-calorie malnutrition; E11.649 Type 2 diabetes mellitus with hypoglycemia without coma; D69.59 Other secondary thrombocytopenia; G91.2 (Idiopathic) normal pressure hydrocephalus; E87.1 Hypo-osmolality and hyponatremia; N17.9 Acute kidney failure, unspecified; E11.65 Type 2 diabetes mellitus with hyperglycemia; Z68.34 Body mass index [BMI] 34.0-34.9, adult; I10 Essential (primary) hypertension; I25.10 Atherosclerotic heart disease of native coronary artery without angina pectoris; G47.33 Obstructive sleep apnea (adult) (pediatric); M81.0 Age-related osteoporosis without current pathological fracture; Z79.4 Long term (current) use of insulin; E66.9 Obesity, unspecified; R79.89 Other specified abnormal findings of blood chemistry; F09 Unspecified mental disorder due to known physiological condition; R26.81 Unsteadiness on feet; G47.00 Insomnia, unspecified; Z79.82 Long term (current) use of aspirin; Z91.81 History of falling; R74.0 Nonspecific elevation of levels of transaminase and lactic acid dehydrogenase [LDH]; E53.8 Deficiency of other specified B group vitamins; Z87.891 Personal history of nicotine dependence; R82.71 Bacteriuria; K59.00 Constipation, unspecified; K72.90 Hepatic failure, unspecified without coma; T38.0X5A Adverse effect of glucocorticoids and synthetic analogues, initial encounter; T45.1X5A Adverse effect of antineoplastic and immunosuppressive drugs, initial encounter; R53.1 Weakness; R39.81 Functional urinary incontinence
CPT/HCPCS: A9270; C1751; J0171; J0690; J1100; J1200; J1447; J1453; J1650; J1720; J2405; J2469; J2765; J2997; J3480; J7030; J7040; J7050; J7060; J9000; J9070; J9201; J9263; J9310; J9370; Q0162; Q0164

== ENCOUNTER → 2016-09-24 | Outpatient (CLI) | payer MEDICARE, BC ==
[~2016-09-24] MED LIST changes: +ALDACTONE25 MG PO; +AMBIEN5 MG PO; +ARTHRITIS PAIN650 M1 PO; +ASCORBIC ACID500 MG PO; +BACTRIM DS1 TAB PO; +COMPAZINE10 MG PO; +DULCOLAX10 MG R; +ENULOSE UD L30 ML/EA PO; +GRANIX SUB-Q; +K-PHOS NEUTRAL)1 TAB PO; +LACTULOSE10 GM/15 M PO; +MAG-OX-400(241400 MG PO; +MILK OF MA400 MG/5 M PO; +MIRALAX17 GM PO; +PERCOCET 5-3251 EACH PO; +PROTONIX40 MG PO; +PYRIDIUM100 MG PO; +VITAMIN B-121000 MCG PO; +VITAMIN D-40400 UNIT PO
== END | disposition disaster alternative care site (69) ==
LOC: GAIR 18:05
DX: R10.9 Unspecified abdominal pain (principal); E10.9 Type 1 diabetes mellitus without complications; A41.9 Sepsis, unspecified organism; K63.1 Perforation of intestine (nontraumatic); R53.81 Other malaise; Z85.72 Personal history of non-Hodgkin lymphomas
CPT/HCPCS: A0422; A0431; A0436; J3010

== ENCOUNTER 2016-10-27 11:55 | Inpatient (IN) | payer MEDICARE, BC ==
[~2016-10-27] VITALS: Ht 157.5 cm; Wt 74.0 kg
--- NOTE | ~2016-10-27 | HP ---
PATIENT'S NAME: MICHAEL LIVINGSTON [facility] AGE: 71 Y [address] ROOM: [place] [address] LOCATION: [facility] [place] ADMIT DATE: 10/27/2016 History & Physical DISCHARGE DATE: FAMILY PHYSICIAN: PHYSICIAN, UNKNOWN ATTENDING PHYSICIAN: Pato VENTURA DATE OF SERVICE: CHIEF COMPLAINT: Neutropenic fever. HISTORY OF PRESENT ILLNESS: The patient is a 71-year-old female with past medical history of recent diagnosis of diffuse B-cell lymphoma, currently on R-CHOP. No rebound. Normal-pressure hydrocephalus status post WIRE WEAVER HELPER shunt placement, sarcoidosis, diabetes mellitus type 2, and obesity who presents here from [facility] with neutropenic fever and hypoglycemia. The patient was admitted to [facility] a few days ago with hypoglycemia from [place] [facility] The patient was found to have low blood glucose in the 60s, was transferred to [facility]. While in the [facility], patient was found to have neutropenia and elevated temperature 101. The patient was then transferred to our facility for further care. The patient currently denies any symptoms. She denies cough, headache, neck pain, abdominal pain, nausea, vomiting, fever, chills, diarrhea, and constipation. When asked why she went to [facility], the patient does not know why she went to the hospital. Of note, the patient was recently admitted to [facility] on October 08 and her stay was complicated with ruptured gastric with peritonitis. The patient was admitted in the ICU and has and has had laparotomy with drainage placement. The patient was then transferred out to [place] [facility]. MEDICAL HISTORY: 1. Lymphoma. 2. Diabetes mellitus type 2. 3. Normal pressure hydrocephalus. 4. Sarcoidosis. 5. Diffuse B-cell lymphoma. SURGICAL HISTORY: Total knee replacement, hysterectomy, laparotomy, and WIRE WEAVER HELPER shunt placement. FAMILY HISTORY: The patient reports that both her parents of old age and does not know history of cancer. SOCIAL HISTORY: PATIENT'S NAME: MICHAEL LIVINGSTON [facility] AGE: 71 Y [address] ROOM: [place] [address] LOCATION: [facility] [place] ADMIT DATE: 10/27/2016 History & Physical DISCHARGE DATE: FAMILY PHYSICIAN: PHYSICIAN, UNKNOWN ATTENDING PHYSICIAN: Pato VENTURA She stays in a [place] [facility]. She is a former smoker. Last smoke in in 1989, and. She is a retired cook. MEDICATION: Currently being reconciled. REVIEW OF SYSTEMS: All systems have been reviewed and are negative except for what I have mentioned in the HPI. PHYSICAL EXAMINATION: VITAL SIGNS: Temperature 101.3, heart rate of 123, blood pressure 148/71, respiratory rate of 18, and O2 saturation of 95% on room air. GENERAL APPEARANCE: The patient is alert and awake, in no acute distress lying on bed. HEAD: The patient has partially bald head. WIRE WEAVER HELPER shunt, surgical incision is clean, dry, and intact. There is no erythema or fluctuance present. EYES: No eye discharge. Extraocular muscles intact. EARS: No discharge.. NOSE: No nasal discharge. MOUTH: Dry oral mucosa. SKIN: Poor skin turgor. HEART: Regular rate and rhythm. No murmurs, rubs, or gallops. CHEST: Clear to auscultation bilaterally. ABDOMEN: Soft, nontender, and nondistended. Old surgical scar present. MUSCULOSKELETAL: Range of motion intact. SKIN: Warm to touch. Lower extremities. No pitting edema. LABORATORY DIRECTOR: The patient alert oriented x3. Motor and sensory grossly intact. LAB: Drawn from [facility] shows sodium of 127, potassium 3.6, blood glucose 76, creatinine of 0.5, and CO2 of 24, her absolute neutrophil count is 580. Hemoglobin 9.6, platelet of 74, white blood cell count of 1, lactate of 1.6. UA shows positive leuko esterase. ASSESSMENT AND PLAN: 1. Neutropenic fever. The patient is presenting with pancytopenia and seizure. Initially, fever of unknown etiology. We will acquire blood culture x2, urine cultures, acquire chest x-ray. I will also acquire LP as patient has had recent abdominal surgery for peritonitis in this mid month at [facility]. This puts the patient at high risk for retrograde infection since she has a WIRE WEAVER HELPER shunt. Thus, will acquire an LP. Platelet count is 74 and discuss. This with our MANAGER ETL, we will transfuse the patient with platelets so that platelet could be above 100, so that PATIENT'S NAME: MICHAEL LIVINGSTON [facility] AGE: 71 Y [address] ROOM: [place] [address] LOCATION: [facility] [place] ADMIT DATE: 10/27/2016 History & Physical DISCHARGE DATE: FAMILY PHYSICIAN: PHYSICIAN, UNKNOWN ATTENDING PHYSICIAN: Pato VENTURA she can have the LP. Since the LP might take time, we will acquire just blood culture and start the patient on empiric treatment of vancomycin and cefepime, to dose vancomycin for possible meningitis. Also other etiology of fever might be a malignancy. However, we would want to rule out infection first. 2. Hypoglycemia. The patient is diabetes type 2 and is on somewhat aggressive regimen at [facility]. We will hold scheduled insulin treatment, hemoglobin A1c last one is 7.5. We will check blood glucose frequently and treat accordingly. 3. Pancytopenia. Hemoglobin 9.6, white blood cell count 1, platelets 74. We will transfuse platelet due to tentative LP. 4. Neutropenia, secondary to malignancy and chemo. 5. Sarcoidosis, seems stable. The patient reports that she follows with her doctor and there is no current treatment. 6. Diffuse B-cell lymphoma. The patient currently on R-CHOP. Discussed case with Dr. Shen. The patient will be seen by [facility] while during her stay. The patient is scheduled for a PET scan on next Saturday. I have personally reviewed the patient's medical record including but not limited to, blood work. Total time spent with patient is greater than 60 minutes more than 50% of the time spent in direct patient care and patient consultation. Case was reviewed with the patient nursing staff. All question was answered to patient's satisfaction. Case reviewed with Dr. Shen and our MANAGER ETL for possible LP. AUDREY NARVAEZ MD AD/modl /[id number] D: [id number] T: [id number] HISTORY & PHYSICAL
--- NOTE | ~2016-10-27 | DS ---
PATIENT'S NAME: MICHAEL LIVINGSTON [facility] AGE: 71 Y [address] ROOM: [place] [address] [place]: [facility] [place]MIT DATE: 10/27/2016 Discharge Summary DISCHARGE DATE: 10/31/2016 FAMILY PHYSICIAN: Physician, Unknown ATTENDING PHYSICIAN: Pato VENTURA ADDENDUM: Briefly, this is an updated discharge summary to the one that was dictated by Dr. Nieves on 10/29/2016. DISCHARGE DIAGNOSES: 1. Neutropenic fever. 2. Acute kidney injury. 3. Acute cystitis. 4. Type 2 diabetes mellitus. 5. Normal-pressure hydrocephalus. 6. Large B-cell lymphoma. 7. Mild protein-calorie malnutrition. 8. Pancytopenia. HOSPITAL COURSE: The patient's discharge was held on 10/30/2016. Physical Therapy and Occupational Therapy were consulted to see if the patient was safe to be able to discharged to home rather than returning to [place] in prison facility in [place]. Physical Therapy and Occupational both saw the patient. They felt as though she was stable to be discharged to home with home health care, prison, PT, and OT. It was discussed with the patient's son, Gonzalo. He was also in agreement with the plan to return home and if she felt unsafe at home, to contact Dr. Avila to get her to a skilled facility. PET scan was scheduled for 11/01/2016. She should be n.p.o. after midnight on 10/31/2016. The patient was up and ambulatory with a walker. Dr. Saavedra did see the patient on 10/30/2016 and did make shunt adjustments. On 10/31/2016, it was felt as though she was stable to be discharged to home with home health care, PT and OT to follow. No antibiotic on discharge was recommended. DISCHARGE MEDICATIONS: 1. Lipitor 20 mg p.o. daily. 2. Calcium 500 mg p.o. daily. 3. Vitamin D 400 mg p.o. daily. 4. Lantus 10 units subcu q.h.s. 5. Humalog insulin sliding scale. 6. Magnesium oxide 400 mg p.o. twice daily. 7. Fish oil 1000 mg p.o. daily. 8. Protonix 40 mg p.o. daily. 9. Tylenol 1300 mg p.o. every 8 hours as needed for pain. 10. Milk of magnesia 30 mL p.o. daily p.r.n. constipation. PATIENT'S NAME: MICHAEL LIVINGSTON [facility] AGE: 71 Y [address] ROOM: [address] [address] [place]: [facility] [place] DATE: 10/27/2016 Discharge Summary DISCHARGE DATE: 10/31/2016 FAMILY PHYSICIAN: Physician, Unknown ATTENDING PHYSICIAN: Pato VENTURA 11. Dulcolax 10 mg rectally every day p.r.n. constipation. 12. Glucophage 500 mg p.o. daily. 13. Ascorbic acid 500 mg p.o. daily. 14. Aldactone 12.5 mg p.o. daily. 15. Lactulose 10 g p.o. daily p.r.n. constipation. DISCHARGE INSTRUCTIONS: Diet: Diabetic. Activity: As tolerated with walker. No driving. Followup appointment with Dr. Peña in four days. Followup appointment with Dr. Saavedra on 11/13/[address] of the head on 11/13/2016. Follow up with Dr. Valle on 11/08/2016 for chemo. Record Accu-Cheks and take to the appointment with Dr. Peña. PET scan as scheduled on 11/01/2016, n.p.o. after midnight. Seek medical attention if having increasing headaches or new neurological symptoms. Thank you for allowing us to participate in the care of this patient as she has been hospitalized at [facility]. OG NELSON APRN FOR MD PAUL GARCIA/samanthal /[id number] CC: Elie Peña MD d: 11/01/16 0402 t: 11/09/16 1834, DISCHARGE SUMMARY
--- NOTE | ~2016-10-27 | HP ---
PATIENT'S NAME: MICHAEL LIVINGSTON [facility] AGE: 71 Y [address] ROOM: [place] [address] LOCATION: [facility] [place] ADMIT DATE: 10/27/2016 History & Physical DISCHARGE DATE: FAMILY PHYSICIAN: PHYSICIAN, UNKNOWN ATTENDING PHYSICIAN: Pato VENTURA DATE OF SERVICE: ADDENDUM: Hyponatremia. The patient has sodium of 127. Last sodium is 138 on September 17. Etiology unknown. The patient appears to be hypovolemic. However, we will acquire urine electrolytes and osmol. Since patient appears hypovolemic, we will continue IV fluids. However, we will follow up closely for rapid correction. To avoid over correction 10 mEq 2-12 mEq in 24 hours. We will repeat the renal function panel at 1800. MD RAPHAEL GARZA/teresa /[id number] D: [id number] T: [id number] HISTORY & PHYSICAL
--- NOTE | ~2016-10-27 | CON ---
PATIENT'S NAME: MICHAEL RAMIREZ [facility] AGE: 71 Y [address] ROOM: [place] [address] LOCATION: [facility] [place] ADMIT DATE: 10/27/2016 Consultation DISCHARGE DATE: FAMILY PHYSICIAN: PHYSICIAN, UNKNOWN ATTENDING PHYSICIAN: Pato VENTURA DATE OF CONSULTATION: 10/28/2016 CHIEF COMPLAINT: Asked to evaluate the patient with neutropenic fever and recent chemotherapy. 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 She has received one cycle of Gemzar, oxaliplatin, and Rituxan followed by transition to R-CHOP chemotherapy, which began on August 30, 2016. She since completed her third cycle of that, fourth cycle overall which was given on 10/18/2016. She had been feeling fairly well staying in the nursing facility because of her overall diminished strength and of note she has had previous CUT FILE CLERK shunt placed for hydrocephalus. Over the previous couple days, her strength and stamina have been decreasing. She has been having increasing urinary incontinence and fevers and was admitted on 10/27/2016 for further evaluation and treatment, and she was started on antibiotics including vancomycin and cefepime. As the patient had a recent CUT FILE CLERK shunt and had a neutropenic fever, the patient did undergo a lumbar puncture on the morning of the for further evaluation of possible infectious complications of that. Currently, the patient is feeling quite well, feeling ready to go home, feeling a lot better after starting the antibiotics. She is now eating and drinking better and feels that her urinary incontinence might be a little better from the day previous. Her breathing has been unchanged. No shortness of breath, cough, or sputum production. No abdominal pain. No diarrhea. Otherwise, remainder review of systems negative or unremarkable in detail. PAST MEDICAL HISTORY: Diabetes and lymphoma. SOCIAL HISTORY: The patient is a and has 2 children. Does not drink. She is a former smoker. ALLERGIES: NO KNOWN MEDICAL ALLERGIES. REVIEW OF SYSTEMS: Per HPI, otherwise unremarkable or negative in detail. PATIENT'S NAME: MICHAEL RAMIREZ [facility] AGE: 71 Y [address] ROOM: [place] [address] LOCATION: [facility] [place] ADMIT DATE: 10/27/2016 Consultation DISCHARGE DATE: FAMILY PHYSICIAN: PHYSICIAN, UNKNOWN ATTENDING PHYSICIAN: Pato VENTURA PHYSICAL EXAMINATION: VITAL SIGNS: Blood pressure is 114/56, pulse 104, respirations 14, and temperature 97.9 with a T-max of 103.1 the night prior. GENERAL: The patient appears comfortable, lying in bed, appears energetic. Her affect is a little flat, but better than I have seen before. Her son is present. HEENT: Pupils are equal, round, and reactive to light. Extraocular muscles are intact. Oral mucosa is moist and pink without erythema and without lesions. NECK: Without adenopathy. HEART: Regular rate and rhythm without murmurs, rubs, or gallops. LUNGS: Clear to auscultation bilaterally without wheezing, without rhonchi. ABDOMEN: Bowel sounds positive. Slightly tender to palpation, but no rebound or guarding. No focal tenderness. EXTREMITIES: Without cyanosis, clubbing, or edema. LABORATORY DATA: Includes a CBC with a white blood cell count of 1.1, hemoglobin 7.7, platelets 109,000, and ANC was 500. Her electrolytes were unremarkable with a BUN and creatinine of 10 and 0.6 respectively. CSF obtained at that time demonstrating no white blood cells, protein was 75, and glucose was 62. Her serum glucose was 108 and no organisms appreciated. Her total bilirubin was 0.9, AST was 15, and ALT was 32. IMPRESSION AND PLAN: Michael Ramirez is a 71-year-old female, admitted with neutropenic fever, currently improving on vancomycin and cefepime. She has had cultures obtained as well as CSF evaluation with no infectious etiology yet identified, although urinary tract infection is possible. We will plan on reviewing the UA, micro and culture, to further clarify the etiology of the fever and as the patient is currently doing well, we will follow her up in the next day or 2 and consider transition to oral antibiotics once her neutrophil is recover. MD AMOS MCCRACKEN/teresa /[id number] d: 10/29/162006 t: 11/03/16 1110, CONSULTATION REPORT
--- NOTE | ~2016-10-27 | CON ---
PATIENT'S NAME: MICHAEL LIVINGSTON [facility] AGE: 71 Y [address] ROOM: [address] [address] [place]: [facility] [place]MIT DATE: 10/27/2016 Consultation DISCHARGE DATE: FAMILY PHYSICIAN: PHYSICIAN, UNKNOWN ATTENDING PHYSICIAN: Pato VENTURA DATE OF CONSULTATION: 10/30/2016 CHIEF COMPLAINT: Existing right ventriculoperitoneal shunt, bilateral hands tremor, neutropenic fever, UTI. HISTORY OF PRESENT ILLNESS: The patient is a 71-year-old female patient whom I inserted a right ventriculoperitoneal shunt back in August 2016, was admitted to the hospital over the weekend with neutropenic fever. She was admitted under the hospitalist. She underwent thorough investigations and found to have UTI. A lumbar puncture was performed, and the cultures so far were negative for infection. Over the weekend, she developed bilateral hands tremor. I last saw this patient on October 12, 2016, in my office. The patient was doing very well at that time. She was recovering from her abdominal surgery. At that time, she indicated that she was doing fairly well. Her strength and gait improved. She had a head CT scan done on October 09, 2016, which I personally reviewed. That scan did not show significant change of the size of the ventricles. On October 12, 2016, the shunt valve opening pressure was adjusted from 2.0 to 1.5. At the time of encounter, the patient reported feeling very well. She clearly indicated that her gait has significantly improved since the last time I saw her in the office. She reported mild headaches. She denied weakness on her hands. She denied vomiting. PHYSICAL EXAMINATION: The patient was alert and oriented. She was not in any respiratory distress. The shunt incisions healed very well. The reservoir depressed and refilled without any problems. I rechecked the shunt opening pressure, and it was 1.5. The patient was also able to ambulate using a walker. Her gait and proximal muscle weakness on the lower extremities had significantly improved. She was alert and oriented. She was moving all 4 extremities without any obvious weakness. INVESTIGATIONS: 1. Noncontrast CT head done on October 30, 2016, which I personally reviewed and compared to the previous scans. It showed decrease in the size of the lateral ventricles. It showed new small bilateral frontal chronic subdural PATIENT'S NAME: MICHAEL LIVINGSTON [facility] AGE: 71 Y [address] ROOM: [address] [address] LOCATION: [facility] [place]MIT DATE: 10/27/2016 Consultation DISCHARGE DATE: FAMILY PHYSICIAN: PHYSICIAN, UNKNOWN ATTENDING PHYSICIAN: Pato VENTURA hematomas, with no significant mass effect. The shunt tubing is stable in position. 2. CSF cultures which were negative for infection so far. IMPRESSION: A 71-year-old female patient who was diagnosed in August 2016 to have normal- pressure hydrocephalus for which she underwent right occipital ventriculoperitoneal shunt placement. She is admitted to the hospital with neutropenic fever and found to have UTI. The patient was complaining of bilateral hands tremor. The patient had a noncontrast CT head earlier today, and that showed decrease in the size of the ventricles, but unfortunately, it showed development of small bilateral frontal chronic subdural hematomas. I previously saw this patient in my office on October 12, 2016, and at that time, I adjusted the shunt opening pressure from 2.0 to 1.5. PLAN: 1. I readjusted the shunt opening pressure from 1.5 to 2.0 to prevent further expansion of the bilateral frontal subdural hematomas. 2. The patient can be discharged from the neurosurgical perspective. I do not think the bilateral hands tremor is related to the small bifrontal subdural hematomas. 3. Followup in my office on November 13, 2016, with a repeat noncontrast CT head. 4. Seek immediate medical attention if having increasing headaches or any new neurologic symptoms. I discussed the imaging findings with the patient. I was very pleased with the remarkable improvement of the patient's gait and strength. I think this patient has benefitted from the ventriculoperitoneal shunt. Unfortunately, I indicated that the recent CT head showed early development of bifrontal small subdural hematomas which is most likely related to shunt overdrainage. Given that, I indicated that the shunt opening pressure will be adjusted to 2.0 instead of 1.5 to minimize the chances of bifrontal hematoma expansion. I indicated that I will see the patient in 2 weeks in my office and a repeat noncontrast CT head will be obtained. The patient asked appropriate questions, and those were answered to her satisfaction. It was a pleasure taking care of this patient, and thanks for having us involved. MD JASBIR ESCALANTE/teresa PATIENT'S NAME: MICHAEL LIVINGSTON [facility] AGE: 71 Y [address] ROOM: [place] [address] [place]: [facility] [place]MIT DATE: 10/27/2016 Consultation DISCHARGE DATE: FAMILY PHYSICIAN: PHYSICIAN, UNKNOWN ATTENDING PHYSICIAN: Pato VENTURA /[id number] CC: Pato Yanez MD d: 10/30/16 1859 t: 10/31/16 1127, CONSULTATION REPORT
--- NOTE | ~2016-10-27 | DS ---
PATIENT'S NAME: MICHAEL LIVINGSTON [facility] AGE: 71 Y [address] ROOM: [id number] [place], [place] [id number] LOCATION: [facility] [place] DATE: 10/27/2016 Discharge Summary DISCHARGE DATE: FAMILY PHYSICIAN: Physician, Unknown ATTENDING PHYSICIAN: Lilian Whyte PRINCIPAL DIAGNOSIS: Neutropenia fever. SECONDARY DIAGNOSES: 1. Acute cystitis. 2. Hyperglycemia. 3. Type 2 diabetes mellitus. 4. Large B-cell lymphoma. 5. Anemia of chronic disease. 6. Normal pressure hydrocephalus, status post LEAD [employer]ER [employer]ICE REPRESENTATIVE shunt. 7. Sarcoidosis. HOSPITAL COURSE: A 71-year-old lady with a past medical history of B-cell lymphoma currently undergoing R-CHOP therapy, have a LEAD C[employer]ER SERVICE REPRESENTATIVE shunt secondary to normal-pressure hydrocephalus, type 2 diabetes, presented to [facility] with fever and hyperglycemia. She was found to be neutropenic, given her ANC count was less than 500. She was transferred here for further medical care. We started her on broad-spectrum antibiotics after obtaining blood cultures. Broad-spectrum antibiotics also include vancomycin given the possibility that she have a LEAD CUSTOMER SERVICE REPRESENTATIVE shunt in place and recently she had surgery of the abdomen over the [facility]. CAT scan of the head was negative and an LP was done, which was negative for any meningitis. She was started on cefepime and Oncology consultation was made. We continued to resuscitate the patient with clinical as well as laboratory improvement in her neutropenic fever. Urine cultures are growing bacillus without any identification as of now. We will discharge her on Levaquin for 4 more days. Of course, of note, the patient requested to see Dr. Saavedra in this hospitalization in order to inquire about her tremors which did not see myself on any of my examination. Tomorrow, the primary team who is in care of this patient will request Dr. Saavedra to come see this patient. MEDICATION ON DISCHARGE: 1. Atorvastatin 20 mg p.o. every day. 2. Calcium 500 mg p.o. every day. 3. Vitamin D3 400 mg p.o. every day. 4. Insulin glargine. We will reduce the dose from 45 units to 10 units subcu q.h.s. on discharge. 5. Sliding scale insulin. 6. Magnesium oxide 400 mg p.o. twice daily. PATIENT'S NAME: MICHAEL LIVINGSTON [facility] AGE: 71 Y [address] ROOM: [address] [address] LOCATION: [facility] [place] DATE: 10/27/2016 Discharge Summary DISCHARGE DATE: FAMILY PHYSICIAN: Physician, Unknown ATTENDING PHYSICIAN: Lilina Whyte 7. Fish oil. 8. Pantoprazole 40 mg p.o. every day. 9. Tylenol 1300 mg p.o. every 8 hours p.r.n. 10. Milk of magnesia 30 mL p.o. every day p.r.n. 11. Dulcolax suppository 10 mg every day p.r.n. 12. Metformin 500 mg p.o. every day. 13. Metoprolol 50 mg p.o. every 12 hours. 14. Ascorbic acid 500 mg p.o. every day. 15. Spironolactone 12.5 mg p.o. every day. 16. Lactulose 10 g p.o. every day p.r.n. 17. Zolpidem 5 mg p.o. every night at bedtime. 18. New medication included Levaquin 750 mg p.o. q.24 hours for 4 more days. FOLLOWUP: She needs to follow up closely with the primary care physician in 2- 3 days to see how her blood glucose is responding to the decreased dose of Lantus and that needs to be adjusted. Follow up with the Oncology as previously scheduled. ADDENDUM: The patient also had JERED on admission with a creatinine of 1.3, which resolved with intravenous fluid resuscitation. MD WEST JAMA/teresa /[id number] d: 10/29/16 1637 t: 11/05/16 1520, DISCHARGE SUMMARY
[~2016-10-27 11:55] MED LIST changes: -AMBIEN5 MG PO; -ARTHRITIS PAIN650 M1 PO; -DULCOLAX10 MG R; -LACTULOSE10 GM/15 M PO; -MAG-OX-400(241400 MG PO; -MILK OF MA400 MG/5 M PO; -PROTONIX40 MG PO; -VITAMIN D-40400 UNIT PO
[2016-10-27] MEDS ORDERED: PROTONIX40 MG PO (16:30)
[2016-10-27] MEDS ORDERED: VITAMIN D-40400 UNIT PO (16:33)
[2016-10-27] MEDS ORDERED: LIPITOR20 M1 PO (16:38)
[2016-10-27] MEDS ORDERED: MAG-OX-400(241400 MG PO (16:39)
[2016-10-27] MEDS ORDERED: MILK OF MA400 MG/5 M PO (16:40)
[2016-10-27] MEDS ORDERED: DULCOLAX10 MG R (16:41)
[2016-10-27] MEDS ORDERED: LACTULOSE10 GM/15 M PO (16:42)
[2016-10-27] MEDS ORDERED: AMBIEN5 MG PO (16:43)
[2016-10-27] MEDS ORDERED: ARTHRITIS PAIN650 M1 PO (16:45)
[2016-10-27 17:14] LABS: ALBUMIN 2.3 gm/dL (3.5-5.0); ALK PHOS 151 IU/L (33-138); ALT 35 IU/L (12-78); ANION GAP 14.7 (10.0-19.0); AST 13 IU/L (10-40); BLOOD UREA NITROGEN 10 mg/dL (6-24); CALCIUM 8.3 mg/dL (8.5-10.5); CHLORIDE 96 mMol/L (96-110); CO2 25 mMol/L (22-32); CREATININE 0.7 mg/dL (0.5-1.1); ESTIMATED GFR (MDRD EQUATION) > 60; POTASSIUM 3.7 mMol/L (3.7-5.1); SODIUM 132 mMol/L (135-145); TOTAL BILIRUBIN 1.1 mg/dL (0.0-1.5); TOTAL PROTEIN 5.7 g/dL (6.0-8.4)
[2016-10-27 22:20] LABS: BILIRUBIN URINE NEGATIVE (NEGATIVE); BLOOD URINE 25 /UL (NEGATIVE); COLOR URINE YELLOW (YELLOW); GLUCOSE URINE NEGATIVE (NEGATIVE); KETONE URINE NEGATIVE (NEGATIVE); LEUKOCYTES URINE 500 /UL (NEGATIVE); NITRITE URINE POSITIVE (NEGATIVE); PROTEIN URINE 30 mg/dL (NEGATIVE); SPEC GRAVITY URINE 1.005 (1.003-1.035); TURBIDITY URINE 1+ (CLEAR); UROBILINOGEN URINE NORMAL (NORMAL)
[2016-10-27 22:26] LABS: WBC URINE FULL FIELD #/HPF (NEGATIVE)
[2016-10-27 22:27] LABS: AMORPHOUS URINE 1+ (NEGATIVE); BACTERIA URINE FEW (NEGATIVE); EPITHELIAL URINE 0-2 #/HPF (NEGATIVE); MUCUS URINE 1+ (NEGATIVE); WBC CLUMPS URINE FEW (NEGATIVE)
[2016-10-28 02:10] LABS: HEMATOCRIT 22.3 % (33.0-46.0); MPV 10.1 fl (9.4-12.4); RBC 2.65 M/uL (3.50-5.50)
[2016-10-28 02:11] LABS: HEMOGLOBIN 7.5 g/dL (10.0-15.0); MCH 28.3 pg (27.0-34.0); MCHC 33.6 gm/dL (32.0-36.5); MCV 84.2 fl (83.0-98.0); PLATELET COUNT 112 K/uL (150-450); RDW-CV 14.8 % (11.9-14.6); WBC 1.5 K/uL (4.0-11.0)
[2016-10-28 02:50] LABS: ABSOLUTE NEUTROPHIL CT (ANC) 0.7 K/uL (1.8-7.8); BANDED NEUTROPHIL # 0.3 K/uL (0.0-0.1); BANDED NEUTROPHILS % 18 %; LYMPHOCYTE # 0.2 K/uL (0.8-4.0); LYMPHOCYTE % 14 %; MONOCYTE # 0.6 K/uL (0.0-1.0); SEGMENTED NEUTROPHIL # 0.4 K/uL (1.8-7.8); SEGMENTED NEUTROPHIL % 27 %
[2016-10-28 05:02] LABS: HEMATOCRIT 23.1 % (33.0-46.0); MCH 28.4 pg (27.0-34.0); MCHC 33.3 gm/dL (32.0-36.5); MCV 85.2 fl (83.0-98.0); PLATELET COUNT 109 K/uL (150-450); RBC 2.71 M/uL (3.50-5.50); RDW-CV 14.9 % (11.9-14.6)
[2016-10-28 05:11] LABS: HEMOGLOBIN 7.7 g/dL (10.0-15.0); WBC 1.1 K/uL (4.0-11.0)
[2016-10-28 05:27] LABS: ALBUMIN 2.2 gm/dL (3.5-5.0); ALK PHOS 130 IU/L (33-138); ALT 32 IU/L (12-78); ANION GAP 11.5 (10.0-19.0); AST 15 IU/L (10-40); BLOOD UREA NITROGEN 10 mg/dL (6-24); CALCIUM 8.2 mg/dL (8.5-10.5); CHLORIDE 105 mMol/L (96-110); CO2 27 mMol/L (22-32); CREATININE 0.6 mg/dL (0.5-1.1); ESTIMATED GFR (MDRD EQUATION) > 60; POTASSIUM 3.5 mMol/L (3.7-5.1); SODIUM 140 mMol/L (135-145); TOTAL BILIRUBIN 0.9 mg/dL (0.0-1.5); TOTAL PROTEIN 5.6 g/dL (6.0-8.4)
[2016-10-28 05:52] LABS: ABSOLUTE NEUTROPHIL CT (ANC) 0.5 K/uL (1.8-7.8); BANDED NEUTROPHIL # 0.2 K/uL (0.0-0.1); BANDED NEUTROPHILS % 21 %; LYMPHOCYTE # 0.3 K/uL (0.8-4.0); LYMPHOCYTE % 25 %; MONOCYTE # 0.3 K/uL (0.0-1.0); SEGMENTED NEUTROPHIL # 0.3 K/uL (1.8-7.8); SEGMENTED NEUTROPHIL % 25 %
[2016-10-29 04:34] LABS: HEMATOCRIT 23.2 % (33.0-46.0); MCH 28.3 pg (27.0-34.0); MCHC 33.2 gm/dL (32.0-36.5); MCV 85.3 fl (83.0-98.0); MPV 10.7 fl (9.4-12.4); PLATELET COUNT 126 K/uL (150-450); RBC 2.72 M/uL (3.50-5.50); WBC 2.2 K/uL (4.0-11.0)
[2016-10-29 04:38] LABS: HEMOGLOBIN 7.7 g/dL (10.0-15.0)
[2016-10-29 04:54] LABS: ALBUMIN 2.1 gm/dL (3.5-5.0); ALK PHOS 140 IU/L (33-138); ALT 29 IU/L (12-78); ANION GAP 12.4 (10.0-19.0); AST 10 IU/L (10-40); BLOOD UREA NITROGEN 9 mg/dL (6-24); CHLORIDE 105 mMol/L (96-110); CO2 26 mMol/L (22-32); CREATININE 0.5 mg/dL (0.5-1.1); ESTIMATED GFR (MDRD EQUATION) > 60; POTASSIUM 3.4 mMol/L (3.7-5.1); SODIUM 140 mMol/L (135-145); TOTAL PROTEIN 5.4 g/dL (6.0-8.4)
[2016-10-29 04:56] LABS: TOTAL BILIRUBIN 0.7 mg/dL (0.0-1.5)
[2016-10-29 06:19] LABS: ABSOLUTE NEUTROPHIL CT (ANC) 1.5 K/uL (1.8-7.8); BANDED NEUTROPHIL # 0.4 K/uL (0.0-0.1); BANDED NEUTROPHILS % 19 %; LYMPHOCYTE # 0.2 K/uL (0.8-4.0); LYMPHOCYTE % 9 %; MONOCYTE # 0.5 K/uL (0.0-1.0); SEGMENTED NEUTROPHIL # 1.1 K/uL (1.8-7.8); SEGMENTED NEUTROPHIL % 51 %
[2016-10-30 05:20] LABS: MCV 85.2 fl (83.0-98.0); MPV 10.7 fl (9.4-12.4); RDW-CV 14.9 % (11.9-14.6); WBC 2.5 K/uL (4.0-11.0)
[2016-10-30 05:21] LABS: HEMOGLOBIN 7.5 g/dL (10.0-15.0); MCH 27.8 pg (27.0-34.0); MCHC 32.6 gm/dL (32.0-36.5); PLATELET COUNT 174 K/uL (150-450)
[2016-10-30 05:33] LABS: ALBUMIN 2.1 gm/dL (3.5-5.0); ALK PHOS 144 IU/L (33-138); ALT 25 IU/L (12-78); ANION GAP 11.8 (10.0-19.0); AST 12 IU/L (10-40); BLOOD UREA NITROGEN 7 mg/dL (6-24); CALCIUM 7.8 mg/dL (8.5-10.5); CHLORIDE 107 mMol/L (96-110); CO2 25 mMol/L (22-32); CREATININE 0.5 mg/dL (0.5-1.1); ESTIMATED GFR (MDRD EQUATION) > 60; POTASSIUM 3.8 mMol/L (3.7-5.1); SODIUM 140 mMol/L (135-145); TOTAL PROTEIN 5.5 g/dL (6.0-8.4)
[2016-10-30 05:34] LABS: TOTAL BILIRUBIN 0.4 mg/dL (0.0-1.5)
[2016-10-30 07:47] LABS: ABSOLUTE NEUTROPHIL CT (ANC) 1.8 K/uL (1.8-7.8); BANDED NEUTROPHIL # 0.4 K/uL (0.0-0.1); BANDED NEUTROPHILS % 16 %; LYMPHOCYTE # 0.4 K/uL (0.8-4.0); LYMPHOCYTE % 16 %; MONOCYTE # 0.3 K/uL (0.0-1.0); SEGMENTED NEUTROPHIL # 1.4 K/uL (1.8-7.8); SEGMENTED NEUTROPHIL % 54 %
[2016-10-31 05:35] LABS: HEMATOCRIT 25.6 % (33.0-46.0); HEMOGLOBIN 8.5 g/dL (10.0-15.0); MCH 28.4 pg (27.0-34.0); MCHC 33.2 gm/dL (32.0-36.5); MCV 85.6 fl (83.0-98.0); MPV 10.4 fl (9.4-12.4); RBC 2.99 M/uL (3.50-5.50); WBC 3.8 K/uL (4.0-11.0)
[2016-10-31 05:42] LABS: PLATELET COUNT 245 K/uL (150-450)
[2016-10-31 05:55] LABS: ALBUMIN 2.4 gm/dL (3.5-5.0); ALK PHOS 178 IU/L (33-138); ALT 28 IU/L (12-78); ANION GAP 12.1 (10.0-19.0); AST 13 IU/L (10-40); BLOOD UREA NITROGEN 6 mg/dL (6-24); CALCIUM 8.3 mg/dL (8.5-10.5); CHLORIDE 107 mMol/L (96-110); CO2 26 mMol/L (22-32); CREATININE 0.6 mg/dL (0.5-1.1); ESTIMATED GFR (MDRD EQUATION) > 60; POTASSIUM 4.1 mMol/L (3.7-5.1); SODIUM 141 mMol/L (135-145); TOTAL BILIRUBIN 0.5 mg/dL (0.0-1.5)
[2016-10-31 06:09] LABS: ABSOLUTE NEUTROPHIL CT (ANC) 2.8 K/uL (1.8-7.8); BANDED NEUTROPHIL # 0.6 K/uL (0.0-0.1); BANDED NEUTROPHILS % 16 %; LYMPHOCYTE # 0.6 K/uL (0.8-4.0); LYMPHOCYTE % 16 %; MONOCYTE # 0.2 K/uL (0.0-1.0); SEGMENTED NEUTROPHIL # 2.2 K/uL (1.8-7.8); SEGMENTED NEUTROPHIL % 57 %
== END 2016-10-31 15:35 | disposition home health service (06) | DRG 809 ==
LOC: GMSU 13:09
PROVIDERS: ADMIT Internal Medicine
PROC: 30233N1 Transfusion of Nonautologous Red Blood Cells into Peripheral Vein, Percutaneous Approach (ICD-10-PCS; principal; 2016-10-27)
DX: D70.9 Neutropenia, unspecified (principal); C79.9 Secondary malignant neoplasm of unspecified site; N17.9 Acute kidney failure, unspecified; C83.30 Diffuse large B-cell lymphoma, unspecified site; E44.1 Mild protein-calorie malnutrition; G91.2 (Idiopathic) normal pressure hydrocephalus; E87.1 Hypo-osmolality and hyponatremia; N30.00 Acute cystitis without hematuria; R50.81 Fever presenting with conditions classified elsewhere; D63.8 Anemia in other chronic diseases classified elsewhere; D86.9 Sarcoidosis, unspecified; E11.65 Type 2 diabetes mellitus with hyperglycemia; E66.9 Obesity, unspecified; Z68.29 Body mass index [BMI] 29.0-29.9, adult
CPT/HCPCS: J0692; J1650; J2001; J3370; J7030; J7040; J7042; J7050; J7120; P9037

== ENCOUNTER → 2016-10-27 | Outpatient (CLI) | payer MEDICARE, BC | END | disposition disaster alternative care site (69) | LOC: GAMB 12:37 | DX: R50.9 Fever, unspecified (principal); C85.90 Non-Hodgkin lymphoma, unspecified, unspecified site; E11.9 Type 2 diabetes mellitus without complications; I10 Essential (primary) hypertension; R53.1 Weakness; Z92.21 Personal history of antineoplastic chemotherapy; Z79.82 Long term (current) use of aspirin; Z79.4 Long term (current) use of insulin | CPT/HCPCS: A0425; A0426 ==

== ENCOUNTER → 2016-11-01 | Outpatient (CLI) | payer BC, MEDICARE ==
[~2016-11-01] MED LIST changes: +AMBIEN5 MG PO; +ARTHRITIS PAIN650 M1 PO; +DULCOLAX10 MG R; +LACTULOSE10 GM/15 M PO; +MAG-OX-400(241400 MG PO; +MILK OF MA400 MG/5 M PO; +PROTONIX40 MG PO; +VITAMIN D-40400 UNIT PO
== END | disposition disaster alternative care site (69) ==
LOC: GKIC 10-30 12:00
DX: C83.39 Diffuse large B-cell lymphoma, extranodal and solid organ sites (principal); C78.7 Secondary malignant neoplasm of liver and intrahepatic bile duct; D70.1 Agranulocytosis secondary to cancer chemotherapy; K25.1 Acute gastric ulcer with perforation; N28.82 Megaloureter
CPT/HCPCS: A9552

== ENCOUNTER → 2016-11-13 | Outpatient (CLI) | payer BC, MEDICARE | END | disposition disaster alternative care site (69) | LOC: GRAD 09-25 09:00 | DX: G91.2 (Idiopathic) normal pressure hydrocephalus (principal) ==

== ENCOUNTER → 2016-11-29 | Outpatient (CLI) | payer BC, MEDICARE | END | disposition disaster alternative care site (69) | LOC: GRAD 12:00 | DX: M25.562 Pain in left knee (principal); C83.39 Diffuse large B-cell lymphoma, extranodal and solid organ sites; C78.7 Secondary malignant neoplasm of liver and intrahepatic bile duct; D70.1 Agranulocytosis secondary to cancer chemotherapy; K25.1 Acute gastric ulcer with perforation; R50.9 Fever, unspecified; Z96.652 Presence of left artificial knee joint ==

== ENCOUNTER → 2017-01-04 | Outpatient (CLI) | payer BC, MEDICARE | END | disposition disaster alternative care site (69) | LOC: GRAD 08:00 | DX: G91.2 (Idiopathic) normal pressure hydrocephalus (principal); R21 Rash and other nonspecific skin eruption; I51.7 Cardiomegaly; Z98.2 Presence of cerebrospinal fluid drainage device ==